=== PATIENT | female | born 1960 | race Caucasian/White ===

== ENCOUNTER 2018-04-14 08:47 | Day surgery (SDC) | payer OTHER ==
[2018-04-10 14:24] LABS: Absolute Lymphocytes (CBC) 2.3 K/uL (0.7-4.9); Absolute Monocytes 0.6 K/uL (0.1-1.3); Absolute Neutrophil 3.8 K/uL (1.8-8.0); Basophils % 0.7 % (0-1.3); Eosinophils % 2.3 % (0-4.4); Hematocrit 40.1 % (36.0-45.0); Lymphocytes % 33.4 % (15.3-44.8); MCH 30.6 pg (27.0-35.0); MCV 89.9 fL (80-100); MPV 8.7 fL (7.6-11.3); Monocytes % 8.8 % (3.3-12.3); RBC Red Blood Cell Count 4.46 M/uL (3.86-4.86)
[2018-04-10 14:33] LABS: Potassium 4.6 mmol/L (3.5-5.1)
--- NOTE | 2018-04-10 14:45 | RAD REPORT ---
EXAM DESCRIPTION: RAD - Chest Pa And Lat (2 Views) - 04/10/2018 2:17 pm CLINICAL HISTORY: Preop chest, right breast infection pending surgical debridement and biopsy COMPARISON: May 2013 TECHNIQUE: PA and lateral views of the chest were obtained. FINDINGS: The lungs are normal volume. No peripheral mass, consolidation or failure finding. Lung ma rkings are similar to the comparison. Heart size is normal and central vasculature is within normal limits. No pleural effusion or pneumothorax seen. No acute bony finding noted. No aortic abnormal ity. IMPRESSION: No acute cardiopulmonary process. No significant change from 2012.
--- NOTE | 2018-04-11 05:12 | EKG ---
Test Date: 2018-04-10 Test Time: 13:31:28 Software Project Lead: LINDA MEASUREMENT RESULTS: Intervals: Rate: 65 FL: 160 QRSD: 98 QT: 396 QTc: 411 [place]: P: 40 FL: 160 QRS: -29 T: 28 INTERPRETIVE STATEMENTS: Normal sinus rhythm Normal ECG No previous ECG available for comparison Electronically Signed On 04-11-18 05:11:19 CDT by Braeden Case
[~2018-04-14 08:47] MED LIST: CEFAZOLIN/SWI 1gm 1 GM/10 ML SYR IVP SCH
--- OUTSIDE RECORDS SUMMARY | 2018-04-14 08:50 | XMS REPORT | Continuity of Care Document ---
:1960 Author Organization Interface Problems Problem Status Onset Classification Date Comments Source Date Reported R92.8 - OTH ABN Active [facility] AND INCONCLUSIVE [address] [place] FINDI Medications Medication Details Route Status Patient Ordering Order Source Instructions Provider Date Allergies, Adverse Reactions, Alerts Substance Category Reaction Severity Reaction Status Date Comments Source type Reported Immunizations Immunization Date Given Site Status Last Updated Comments Source Results Order Results Value Reference Date Interpretation Comments Source Name Range Breast Breast 03/25 - [facility] w/wo w/ - [place] contrast contrast bilat MRI bilat MRI Read by: Maru Philip MD Dictated Date/time: 03/28/18 13:01 BREAST MRI OF BOTH BREASTS : 03/25/2018 Electronically Signed by: Maru Philip MD 03/28/18 13:01 FINAL REPORT CLINICAL: /N64.52 Nipple Discharge HISTORY: 58 yo high risk female referred by Dr. Garrett for MRI evaluation of RIGHT nipple discharge which began 01/19/2018. Patient describes the nipple discharge as whitish-yellow from multiple ducts and sometimes spontaneous and sometimes nonspontaneous. She also reports a similar discharge from the LEFT nipple but from only two ducts and less frequent and less voluminous. The RIGHT discharge teste d Guaiac positive at time of MRI. Nipple piercings removed in 2013. Family history of breast cancer: Mother at 37 and at 39, (m) GGM, (m) GA, (p) GM, and (p) GA. No prior breast surgeries or biopsies. Patient reports history of aortic aneurysm without intervention. Previous uterine ablation. COMPARISON: Bilateral mammogram, 03/12/2018, [facility]. TECHNIQUE: High resolution 1.6 mm eTHRIVE-linear T1 axial acquistions were obtained of both breasts using a Van 3.0 Jackie MRI with dedicated Ingenia breast coil preceding and following the adminstr ation of 14 cc of Multihance contrast. Axial STIR sequence along with T1 axial (non fat saturated) and post sagittal T1 images through each breast were aquired. Multiplanar reconstructions (MPR), color mapping, time intensity curves, computer generated subtraction with motion correction, and 3D MIP (maximum intensity projection) were performed on physicians review station with [employer]. PRE GADOLINIUM CONTRAST INJECTION TESTING: The patient's creatinine and GFR were assessed withthe I-STAT DEVICE. Creatinine measured 0.7 mg/dl and GFR 96. The patient's values fall within norm al limits for age and weight. These values are considered within tolerance level and safe for injection. MRI FINDINGS: RIGHT BREAST FINDINGS: There is an approximately 0.7 rim-enhancing lesion within the base of the nipple. It is low signal on T1 FSE and increased on T2 most compatible with an abscess. There is irregu lar ductal enhancement extending posteriorly from the central aspect of the nipple lesion/abscess measuring approximately 3.0 cm in greatest AP dimension. This is best seen on the delayed post sagittal image #74. Elsewhere in the right breast, there are no additional abnormal areas of enhancement that would be suspicious for malignancy.The visualized lymph nodes appear architecturally preserved. The chest wall s tructures appear normal. No internal mammary adenopathy. LEFT BREAST FINDINGS: I do not identify any definite evidence of spiculated or linear beaded enhancement to suggest malignancy. The nipple- areolar complex appears to be unremarkable. The visualized lym ph nodes appear architecturally preserved. The chest wall structures appear normal. No internal mammary adenopathy. NOTE: There is a known (per patient) ascending aortic aneurysm measuring approximately 4.5 cm in caliber by this study. IMPRESSION: PROBABLY BENIGN 1. 0.7 CM RIM-ENHANCING LESION WITHIN THE BASE OF THE RIGHT NIPPLE ASSOCIATED WITH IRREGULAR DUCTAL ENHANCEMENT DESCRIBED ABOVE. THE MRI FINDINGS COMBINED WITH THE CLINICAL FINDINGS AND HISTORY ARE MOST COMPATIBLE WITH AN ABSCESS COMMUNICATING WITH ANTERIOR DUCTAL NETWORK. HOWEVER, DUCTAL ENHANCEMENT DUE TO NEOPLASM CANNOT ABSOLUTELY BE EXCLUDED AT THIS TIME. 2. THERE IS NO DEFINITE MRI EVIDENCE OF MALIGNANCY INVOLVING THE RIGHT BREAST. 3. NO SUSPICIOUS ADENOPATHY. 4. KNOWN ASCENDING AORTIC ANEURYSM (NO INTERVENTION PER PATIENT). RECOMMENDATION: 1. CONTINUED SURGICAL MANAGEMENT PER DR. GARRETT. 2. ALSO, RECOMMEND A FOLLOW-UP CONTRAST ENHANCED BREAST MRI IN 3-6 MONTHS AFTER SURGICAL MANAGEMENT IS COMPLETED TO ASSESS RESOLUTION OF THE DUCTAL ENHANCEMENT (ESPCIALLY IN LIEU OF HER FAMILY HISTORY OF BREAST CANCER). This exam was interpreted at [id number] for [facility]. Maru Philip M.D. sg/:03/28/2018 13:01:56 Director Business Integration(s): Khadra Kimbrough [facility] letter sent: BI-RADS 3 MRI BI-RADS: 3 Probably benign Vital Signs Vital Sign Value Date Comments Source Encounters Location Location Encounter Encounter Reason Attending ADM DC Status Source Details Type Number For Provider Date Date Visit Procedures Procedure Code Date Perfomer Comments Source
[2018-04-14] MEDS ORDERED: Ringers Lactate 1,000 ML IV ONE (10:01)
[2018-04-14] MEDS ORDERED: CEFAZOLIN/SWI 1gm 1 GM/10 ML SYR ONE (10:01)
[2018-04-14] MEDS ORDERED: LIDOCAINE 2% MPF 5 ML VIAL ONE (10:15)
[2018-04-14] MEDS ORDERED: PROPOFOL 200 MG/20 ML VIAL IV ONE (10:15)
[2018-04-14] MEDS ORDERED: MIDAZOLAM HCL 2 MG/2 ML INJ ONE (10:15)
[2018-04-14] MEDS ORDERED: FENTANYL CITR 100 MCG/2 ML ONE (10:16)
--- NOTE | 2018-04-14 11:28 | P.BOP ---
Preoperative diagnosis: right breast retroareolar mass with bloody nipple discharge Postoperative diagnosis: same Primary procedure: Right breast lumpectomy Coo: TOM MENDOZA Estimated blood loss: <10cc Specimen: mass Findings: mass Anesthesia: General Complications: None Transferred to: Recovery Room Condition: Good
[2018-04-14] MEDS ORDERED: CODEINE 30MG/APAP 300MG TAB ONE (12:19)
[2018-04-14 13:19] VITALS: BP 106/72; TEMP 97.2; O2SAT 97
--- NOTE | 2018-04-14 22:28 | OP ---
Date of Procedure: 04/14/2018 Surgeon: Lalito Nicolas MD Staff Internist Office Based Only: KATALINA Chamberlain. Diagnosis: Right breast mass with bloody nipple discharge. Postop Diagnosis: Right breast mass with bloody nipple discharge. Procedure: Right breast lumpectomy. Estimated Blood Loss: Less than 10 cc. Specimen: Mass. Anesthesia: General plus local. Indications: This is a case of a 58-year-old patient, with a bloody nipple discharge to have had a d uctogram recently, was found to have a mass on the breast tissue just behind the nipple. An area of a duct with the nipple was identified previously. The patient understand the benefits, alternatives, and risks of excision, which include, not limited to infection, bleeding, damage to adjacent structur es, anesthesia complications, recurrence, [place], and even . She also understands this may not reli fuad any symptoms. She might need more than one surgical intervention. She understood. Signed the c onsent. Description Of Procedure: The patient was brought to the operating room, placed in supine position. Anesthesia was achieved without complication. Right breast was prepped and draped in usual sterile fashion. A time-out was called. An incision was made in the periareolar region. Incision was lexi ed down to breast tissue. We proceeded to do a debridement and removal of the mass just behind the n ipple, we also included the duct of the nipple associated with the mass. We went back about 3 cm from the nipple itself to get some scar tissue present in that region, with some duct present back there too. The nipple was inspected. Once again, the duct, the nipple was also removed with the breast ti ssue, some extra nipple margins were sent. No other mass was palpated. The area was irrigated. The area behind the areolar, nipple was completely excised all the way down to 3 cm. The area was irriga sudha. Hemostasis obtained. The area was closed with a subcuticular closure with a Steri-Strip on top . The patient tolerated the procedure well. The patient was sent to recovery in stable condition. Diagnosis: Right breast mass with bloody nipple discharge. Procedure: Right breast lumpectomy Disposition: Home. Activity: As tolerated. No heavy lifting. Followup: Follow up in my office in 1 week. Call for appointment [phone]. Keep area dry until nex t office visit. Keep the dressings intact. Medications: Include Bactrim DS p.o. b.i.d. and Tylenol No. 3, q.4 hours p.r.n. pain. KAILA/HAFSA Voice ID: [id number] Report ID: [id number]
== END 2018-04-14 12:30 | disposition home or self-care (01) ==
LOC: OR 08:47
PROVIDERS: ATTEND Surgery
PROC: 0HBT0ZZ Excision of Right Breast, Open Approach (ICD-10-PCS; principal; 2018-04-14 11:45)
DX: N63.0 Unspecified lump in unspecified breast (principal); I10 Essential (primary) hypertension; Z91.040 Latex allergy status; Z82.49 Family history of ischemic heart disease and other diseases of the circulatory system; Z80.3 Family history of malignant neoplasm of breast; Z80.8 Family history of malignant neoplasm of other organs or systems
CPT/HCPCS: 36415; 71046; 80048; 85025; 88305; 88307; 93005; J0690; J2250; J3010

== ENCOUNTER 2020-10-22 10:26 | Emergency (ER) | payer OTHER ==
--- OUTSIDE RECORDS SUMMARY | 2020-10-22 10:30 | XMS REPORT | Continuity of Care Document ---
:1960 Author Organization [facility] Information [place] Care Team Providers Name Role Phone [facility] [employer] Unavailable Un available Problems Problem Status Onset Classification Date Comments Sourc e Date Reported R92.8 - OTH ABN Active [facility] AND INCONCLUSIVE 8 Her [facility]pta FINDI Medications No Data Provided for This Section Allergies, Adverse Reactions, Alerts No Known Medication Allergies Immunizations No Data Provided for This Section Results No Data Provided for This Section Pathology Reports No Data Provided for This Section Diagnostic Reports Report Value Date Source Breast w/wo contrast 01/13/2019 [facility] bilat MRI BREAST MRI OF BOTH BREASTS : 01/13/2019 CLINICAL: 58 yo with history of right breast surgery April 2018 (duct removal) for nipple discharge. Previous MRI 03/2018 showed an abscess communicating with anterior ductal network versus neoplasm. No malignancy was found at surgery. COMPARISON:Comparison is mad e to exam dated: 03/25/2018 breast MRI - [facility]. TECHNIQUE: Interpretation of this MRI was correlated with available mammograms. 19 cc of MultiHance contrast was injected. Axial T1, T2, sagittal T1, pre and post contrast T1, and coronal images were obtained with a dedicated breast MRI. FINDINGS: Bilateral background breast enhancement is minim al. RIGHT BREAST: There are right retroareolar postsurgical changes including nipple retraction. There is no suspicious mass or nonmass enhancement. There are no abnormalities seen in the axillary nodes region or internal mammary nodes. LEFT BREAST: There are retroareolar ducts with T1 hyperintense debris and no associated enhancement. There is no suspicious mass or nonmass enhancement. There are no abnormalities seen in the axillary nodes region or internal mammary nodes. IMPRESSION: BENIGN Right retroareolar postsurgi victor manuel changes including nipple retraction. No suspicious enhancement in either breast. RECOMMENDATION: - BILATERAL MAMMOGRAM AND ULTRASOUND IS DUE MARCH 2019. The patient was informed of the findings and rec ommendations 01/16/19 at 1 pm. This exam was interpreted at [id number] for [facility]. Carito Chan M.D. dh/:01/16/2019 13:38:31 Punch Hand(s): Fabien Stubbs [facility] [place] [facility] sent: BI-RADS 1/2 MRI BI-RADS: 2 Benign Breast w/wo contrast 03/25/2018 [facility] Juancarl[employer] cash bilat MRI BREAST MRI OF BOTH BREASTS : 03/25/2018 CLINICAL: /N64.52 Nipple Discharge HISTORY: 58 yo high risk fem norberto referred by Dr. Nicolas for MRI evaluation of RIGHT nipple discharge which began 01/19/2018. Patient describes the nipple discharge as whitish-yellow from multiple ducts and sometimes spontaneous an d sometimes nonspontaneous. She also reports a similar [...] surgeries or biopsies. Patient reports history of a ortic aneurysm without intervention. Previous uterine ablation. COMPARISON: Bilateral mammogram, 03/12/2018, [facility]. TECHNIQUE: High resolution 1 .6 mm eTHRIVE-linear T1 axial acquistions were obtained of both breasts using a Van 3.0 Jackie MRI with dedicated In[employer]ia breast coil preceding and following the adminstr ation of 14 cc of Multihance contrast. Axial STIR sequence along with T1 axial (non fat saturated) and post sagittal T1 images through each breast were aquired. Multiplanar reconstructions (MPR), color mapping, time intensity cur ves, computer generated subtraction with motion correction, and 3D MIP (maximum intensity projection) were performed on physicians review station with [employer]. PRE GADOLINIUM CONTRAST INJE CTION TESTING: The patient's creatinine and GFR were assessed withthe I-STAT DEVICE. Creatinine measured 0.7 mg/dl and GFR 96. The patient's values fall wit hin normal limits for age an d weight. These values are considered within tolerance level and safe for injection. MRI FINDINGS: RIGHT BREAST FINDINGS: The re is an approximately 0.7 rim-enhancing lesion within the base of the nipple. It is low signal on T1 FSE and increased on T2 most compatible with an abscess. There is irregu lar ductal enhancement exten ding posteriorly from the central aspect of the nipple lesion/abscess measuring approximately 3.0 cm in greatest AP dimension. This is best seen on the delayed post sagittal image #74. Elsewhere in the right breas t, there are no additional abnormal areas of enhancement that would be suspicious for malignancy.The visualized lymph nodes appear architecturally preserved. The chest wall s tructures appear normal. No internal mammary ad enopathy. LEFT BREAST FINDINGS: I do n ot identify any definite evidence of spiculated or linear beaded enhancement to suggest malignancy. The nipple-areolar complex appears to be unremarkable. The visualized lym ph nodes appear architectura lly preserved. The chest wall structures appear normal. No internal mammary adenopathy. NOTE: There is a known (per patient) ascending aortic aneurysm measuring approximately 4.5 cm in caliber by this study. IMPRESSION: PROBABLY BENIGN 1. 0.7 CM RIM-ENHANCING LESI ON WITHIN THE BASE OF THE RIGHT NIPPLE ASSOCIATED WITH IRREGULAR DUCTAL ENHANCEMENT DESCRIBED ABOVE. THE MRI FINDINGS COMBINED WITH THE CLINICAL FINDINGS AND HISTORY ARE MOST COMPATIBLE WITH AN ABSC ESS COMMUNICATING WITH ANTERIOR DUCTAL NETWORK. HOWEVER, DUCTAL ENHANCEMENT DUE TO NEOPLASM CANNOT ABSOLUTELY BE EXCLUDED AT THIS TIME. 2. THERE IS NO DEFINITE MRI EVIDENCE OF MALIGNANCY INVOLVING THE RIGHT BREAST. 3. NO SUSPICIOUS ADENOPATHY. 4. KNOWN ASCENDING AORTIC ANEURYSM (NO INTERVEN TION PER PATIENT). RECOMMENDATION: 1. CONTINUED SURGICAL MANAGEMENT PER DR. CLEMENCIA Lua 2. ALSO, RECOMMEND A FOLLOW- UP CONTRAST ENHANCED BREAST MRI IN 3-6 MONTHS AFTER SURGICAL MANAGEMENT IS COMPLETED TO ASSESS RESOLUTION OF THE DUCTAL ENHANCEMENT (ESPCIALLY IN LIEU OF HER FAMILY HISTORY OF BREAST CANCER). This exam was interpreted at [id number] for [facility]. Maru Philip M.D. sg/:03/28/2018 13:01:56 Punch Hand(s): Khadra Kimbrough [facility] letter sent: BI-RADS 3 MRI BI-RADS: 3 Probably benign Consultation Notes No Data Provided for This Section Discharge Summaries No Data Provided for This Section History and Physicals No Data Provided for This Section Vital Signs No Data Provided for This Section Encounters No Data Provided for This Section Procedures No Data Provided for This Section Assessment and Plan No Data Provided for This Section Plan of Care No Data Provided for This Section Social History No Data Provided for This Section Family History No Data Provided for This Section Advance Directives No Data Provided for This Section Functional Status No Data Provided for This Section
--- OUTSIDE RECORDS SUMMARY | 2020-10-22 10:30 | XMS REPORT | Clinical Summary ---
:1960 Author Organization [facility] Address [address] [place] [address] Care Team Providers Name Role Phone Asked, No Pcp Primary Care Provider Unavailable Allergies Active Allergy Reactions Severity Noted Date Comments Latex Rash Low 06/15/2019 Added based on information entered during case ent ry, please review and add reactions, type , and severity as needed Medications Medication Sig Dispensed Refills Start End Date Status Date azelastine azelastine 137 0 Acti ve (ASTELIN) 137 mcg mcg (0.1 %) (0.1 %) nasal spray nasal spray aerosol atorvastatin 0 Active (LIPITOR) 10 MG 9 tablet fluticasone fluticasone 0 Active propionate propionate 50 (FLONASE) 50 mcg/actuation mcg/actuation nasal nasal spray spray,suspensio n gabapentin gabapentin 300 0 Acti ve (NEURONTIN) 300 mg mg capsule capsule sertraline (ZOLOFT) 50 mg daily. 0 Active 50 MG tablet 9 temazepam Take 30 mg by 0 Active (RESTORIL) 30 mg mouth nightly capsule as needed for sleep. cyclobenzaprine Take 10 mg by 0 Active (FLEXERIL) 10 mg mouth as needed tablet for muscle spasms. vit Take by mouth 2 0 Acti ve C/E/Zn/coppr/lutein (two) times a /zeaxan day. (PRESERVISION AREDS-2 ORAL) traMADoL (ULTRAM) Take 50 mg by 0 Active 50 mg mouth every 6 tabletIndications: (six) hours as acute pain needed for moderate pain .acute pain. losartan (COZAAR) Take 1 tablet 90 tablet 1 Active 50 MG tablet (50 mg total) 0 by mouth daily. etanercept (ENBREL) Inject 50 mg 0 Active 50 mg/mL (1 mL) under the skin injection once a week. metoprolol Take 2 tablets 90 tablet 3 09/20/20 Acti ve succinate XL (50 mg total) 0 21 (TOPROL-XL) 25 mg by mouth daily. 24 hr tablet losartan (COZAAR) losartan 50 mg 0 0 Discontinued 50 MG tablet tablet 20 (Reorde r) cholecalciferol, Take 1,000 0 08/16/20 Di scontinued vitamin D3, Units by mouth 20 (Vitamin D3) 25 mcg 2 (two) times a (1,000 unit) day. capsule metoprolol Take 1 tablet 90 tablet 3 09/20/20 Disco ntinued succinate XL (25 mg total) 0 20 (TOPROL-XL) 25 mg by mouth daily. 24 hr tablet Active Problems Problem Noted Date Palpitation 08/17/2020 COVID-19 08/17/2020 Other spondylosis, cervical region 06/25/2019 Aortic dilatation 06/17/2019 Nonrheumatic aortic valve insufficiency 06/17/2019 Tobacco use 06/17/2019 Hypercholesteremia 06/17/2019 Essential hypertension 06/17/2019 Establishing care with new doctor, encounter for 06/17 Cervical radiculopathy 01/14/2018 Cervical stenosis of spinal canal 01/14/2018 Lumbar radiculopathy 01/14/2018 Chronic pain disorder 01/14/2018 Psoriatic arthritis 01/14/2018 Thoracic ascending aortic aneurysm 01/06/2017 Encounters Date Type Specialty Care Team Description 09/20/2020 Telemedicine Cardiology Ernie Palpitation; DEXTER Doan MD 08/29/2020 Travel 08/26/2020 Orders Only Cardiology Dami Palpitation (Pr imary Dx); BENNETT Laguna-Karen 08/24/2020 Hospital Encounter Procedural Al-Kusum, Aortic di latation (HCC); Cardiology Rossy Coronado, Essential hype rtension; Thoracic ascend ing aortic aneurysm (HCC); Psoriatic arthr itis (HCC); Hypercholestere xochitl 08/24/2020 Travel 08/23/2020 Travel 08/17/2020 Telemedicine Cardiology Nuno, Aortic dilatati on (HCC) (Primary Dx); Rossy Coronado, Essential hype rtension; Thoracic ascend ing aortic aneurysm (HCC); Psoriatic arthr itis (HCC); Luly leung; COVID-19 08/17/2020 Travel 07/25/2020 Refill Cardiology Dami, Med Refill Luz Elena, BENNETT 03/24/2020 Telemedicine Cardiology [facility], Aortic dilatati on (HCC) (Primary Dx); Rossy Coronado, Nonrheumatic a ortic valve insufficiency; MD Luly leung 03/23/2020 Travel 03/21/2020 Travel 10/27/2019 Hospital Encounter Radiology Jakob, Cervical radiculitis Carlee Correa MD 10/27/2019 Hospital Encounter Radiology Jakob, Lumbar ra diculopathy Carlee Correa MD 10/27/2019 Hospital Encounter Radiology Jakob, Brachial radiculitis; Carlee Lumbar radiculo mariana Correa MD after 10/22/2019 Surgical History Surgery Date Site/Laterality Comments ROTATOR CUFF REPAIR Right wrist CARPAL TUNNEL RELEASE Right TONSILLECTOMY 1991 BREAST SURGERY Right milk duct remova l april 2018 ENDOMETRIAL ABLATION 2005 DISCECTOMY, CERVICAL, WITH 06/25/2019 Spine Cervical/Anteri or Procedure: ANTERIOR FUSION, ANTERIOR APPROACH CERVIC AL DISCECTOMY AND FUSION WITH ALLO GRAFT AND AUTOGRAFT, R IGHT C4-C7; Surgeon: Carlee Robert MD; Location: [facility] OR; Service: Neurosu rgery; Laterality: Ante rior; Medical devices from this surgery are in the Implants section . FUSION, SPINE, CERVICAL, 06/29/2019 Spine Cervical/N/A Proc edure: CERVICAL POSTERIOR APPROACH SPINE C4 - C7 CORUS; Surgeon: Carlee Robert MD; Location: [facility] OR; Service: Neurosu rgery; Laterality: N/A; Medical devices from this surgery are in the Implants section . 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 Mosquera 9/11/19 Aortic valve insufficiency NON Rheumatic aortic valve insuffiency - Dr. Campos dx 2 yrs ago Anesthesia nfhap, ponv ,awaken during rotator cuff r shoulder - c ouldn't breath and coul hear- January 2014 can climb stairs weights recu mbent bile x 4-5 days a week x 1 hour , occasional pain in chest pt Dr. Pelayo aware Pain upper chest wall co mes and goes - not activity related Dr. Pelayo aware Resolve w/n 5 minutes Awareness under anesthesia rotator cuff repair 2013 PONV (postoperative nausea and vomiting) Hypertension Hypercholesteremia Coronary artery disease (CAD) excluded History of PSVT (paroxysmal new dx augus t 30, Dr Mccann aware supraventricular tachycardia) A-fib (HCC) Chest pain when resting or sitt ing may resolvew/n 5 mintues comes and goes History of EKG 06/17/19 Anxiety Panic attack jun 06, 2019 S/P epidural steroid injection 05/21/19, 05/14/19 cervical diagnostic epidural injection H/O ankylosing spondylitis and stenosis Psoriatic arthritis (HCC) Wears glasses Family History Medical History Relation Name Comments CABG/Stent Father Heart attack Father Cancer Mother bone and breast Heart attack Paternal Grandfather Heart disease Paternal Grandmother Relation Name Status Comments Father Mother Paternal Grandfather Paternal Grandmother Social History Tobacco Use Types Packs/Day Years Used Date Former Smoker Electronic Cigarettes, Cigarettes 39 Quit: 09/2018 Smokeless Tobacco: Never Used Comments: stopped 6 months ago Alcohol Use Drinks/Week oz/Week Comments Yes rare Alcohol Habits Answer Date Recorded How often do you have a drink containing alcohol? Monthly or less 06/17/2019 How many drinks containing alcohol do you have on a Not aske d typical day when you are drinking? How often do you have six or more drinks on one Not asked occasion? Sex Assigned at Date Recorded Female 06/16/2019 3:43 PM CDT Job Start Date Occupation Industry Not on file Not on file Not on file Last Filed Vital Signs Vital Sign Reading Time Taken Comments Blood Pressure 122/79 09/29/2020 10:32 AM AUTOMATIC COIN MACHINE MECHANIC Pulse 64 09/29/2020 10:32 AM AUTOMATIC COIN MACHINE MECHANIC Temperature - - Respiratory Rate - - Oxygen Saturation - - Inhaled Oxygen Concentration - - Weight 74.4 kg (164 lb) 09/29/2020 10:32 AM AUTOMATIC COIN MACHINE MECHANIC Height 165.1 cm (5' 5") 08/24/2020 9:55 AM AUTOMATIC COIN MACHINE MECHANIC Body Mass Index 27.29 08/24/2020 9:55 AM AUTOMATIC COIN MACHINE MECHANIC Plan of Treatment Health Maintenance Due Date Last Done Comments COVID-19 VACCINE (1 of 2) 1977 CERVICAL CANCER SCREENING 1982 BREAST CANCER SCREENING 2011 COLONOSCOPY SCREENING 2011 SHINGLES VACCINES (#1) 2011 INFLUENZA VACCINE 05/07/2020 06/19/2019, 07/07/2018 Implants Implanted Type Area Line Construction Engineer Device Shelf Model / Serial / Identifier Expiration Lot Date Kit Bone Graft Thread Interbody Extra-Small Titanium Infuse - [id number] Human N/A: MEDTRONIC SPINAL 07/06/2020 [id number] / Implanted: Qty: 1 on 06/25/2019 by Carlee Evans ot, MD at [facility] Tissue N/A AND BIOLOGICS / Implants [id number] Graft Bone Tissue Melinda Elite Large 10.6 - [id number] - [id number] Human N/A: MUSCULOSKELETAL 10/28/2020 [id number] / Implanted: Qty: 1 on 06/29/2019 by Carlee Evans ot, MD at [facility] Tissue N/A TRANSPLANT [id number] / Implants [employer] [place] Dbm Gel Plus,8cc - [id number] IPM N/A: NUVASIVE SPIN E 01/17/2020 [id number] / Implanted: Qty: 1 on 06/25/2019 by Carlee Evans ot, MD at [facility] IMPLANT N/A / DEVICES [id number] Modulus Cervical, [id number] 10deg - [id number] IPM N/A: NUVASIVE SPINE 09/23/2023 [id number] / Implanted: Qty: 1 on 06/25/2019 by Carlee Evans ot, MD at [facility] IMPLANT N/A / DEVICES [id number] Modulus Cervical, [id number] 10deg - [id number] IPM N/A: NUVASIVE SPINE 02/24/2024 [id number] / Implanted: Qty: 1 on 06/25/2019 by Carlee Evans ot, MD at [facility] IMPLANT N/A / DEVICES [id number] Modulus Cervical, [id number] 10deg - [id number] IPM N/A: NUVASIVE SPINE 05/06/2024 [id number] / Implanted: Qty: 1 on 06/25/2019 by Carlee Evans ot, MD at [facility] IMPLANT N/A / DEVICES [id number] Propel Dbm Gel Plus,8cc - [id number] IPM N/A: NUVASIVE SPIN E 06/25/2022 [id number] / Implanted: Qty: 1 on 06/25/2019 by Carlee Evans ot, MD at [facility] IMPLANT N/A / DEVICES NA Dtrax Bone Screw - [id number] IPM N/A: 03/25/2021 PD 32 301 / Implanted: 06/29/2019 at [facility] (Quantity not on file) IMPLANT N/A / DEVICES [id number] Dtrax Bone Screw - [id number] IPM N/A: 03/25/2021 PD 32 301 / Implanted: 06/29/2019 at [facility] (Quantity not on file) IMPLANT N/A / DEVICES [id number] Dtrax Cervical Cage B - [id number] IPM N/A: 01/14/2021 PD 31 200 / Implanted: 06/29/2019 at [facility] (Quantity not on file) IMPLANT N/A / DEVICES [id number] Dtrax Bone Screw - [id number] IPM N/A: 03/04/2021 PD 32 301 / Implanted: 06/29/2019 at [facility] (Quantity not on file) IMPLANT N/A / DEVICES [id number] Dtrax Cervical Cage B - [id number] IPM N/A: 04/15/2021 PD 31 200 / Implanted: 06/29/2019 at [facility] (Quantity not on file) IMPLANT N/A / DEVICES [id number] Dtrax Bone Screw - [id number] IPM N/A: 12/08/2020 PD 32 301 / Implanted: 06/29/2019 at [facility] (Quantity not on file) IMPLANT N/A / DEVICES [id number] Plate Spine Revltn 3lvl 58mm [place] Acp - [id number] Spinal N/A: NUVASIVE [id number] / Implanted: Qty: 1 on 06/25/2019 by Carlee Evans ot, MD at [facility] Implants N/A / Screw Spinal Fxd Slf-Tap 4x13mm [place] Revolution Acp - [id number] Spinal N/A: NUVASIVE [id number] / Implanted: Qty: 2 on 06/25/2019 by Carlee Evans ot, MD at [facility] Implants N/A / Screw Spinal Nikita Slf-Tap 4x13mm [place] Revolution Acp - [id number] Spinal N/A: NUVASIVE [id number] / Implanted: Qty: 4 on 06/25/2019 by Carlee Evans ot, MD at [facility] Implants N/A / Screw Spinal Nikita Slf-Tap 4x15mm [place] Revolution Acp - [id number] Spinal N/A: NUVASIVE [id number] / Implanted: Qty: 2 on 06/25/2019 by Carlee Evans ot, MD at [facility] Implants N/A / Procedures Procedure Name Priority Date/Time Associated Diagnosis Comme nts TROPONIN Routine 08/24/2020 1:22 Aortic dilatation Result s for this PM AUTOMATIC COIN MACHINE MECHANIC (HCC) procedure are in Essential the results hypertension section. Thoracic ascending aortic aneurysm (HCC) Psoriatic arthritis (HCC) Hypercholesteremia CBC WITH PLATELET AND Routine 08/24/2020 1:22 Aortic dilatati on Results for this DIFFERENTIAL PM AUTOMATIC COIN MACHINE MECHANIC (HCC) procedure are in Essential the results hypertension section. Thoracic ascending aortic aneurysm (HCC) Psoriatic arthritis (HCC) Hypercholesteremia HEPATIC FUNCTION Routine 08/24/2020 1:22 Aortic dilatation Re sults for this PANEL PM AUTOMATIC COIN MACHINE MECHANIC (HCC) procedure are in Essential the results hypertension section. Thoracic ascending aortic aneurysm (HCC) Psoriatic arthritis (HCC) Hypercholesteremia COMPREHENSIVE Routine 08/24/2020 1:22 Aortic dilatation Resul ts for this METABOLIC PANEL PM AUTOMATIC COIN MACHINE MECHANIC (HCC) procedure are in Essential the results hypertension section. Thoracic ascending aortic aneurysm (HCC) Psoriatic arthritis (HCC) Hypercholesteremia CARDIAC MRI RV Routine 08/24/2020 10:52 Aortic dilatation Resu lts for this DYSPLASIA EVAL W AM AUTOMATIC COIN MACHINE MECHANIC (HCC) procedure are in CONTRAST Essential the results hypertension section. Thoracic ascending aortic aneurysm (HCC) Psoriatic arthritis (HCC) Hypercholesteremia POC PANEL Routine 08/24/2020 9:17 Results for this AM AUTOMATIC COIN MACHINE MECHANIC procedure are i n the results section. ESTIMATED GFR Routine 08/24/2020 9:17 Results fo r this AM AUTOMATIC COIN MACHINE MECHANIC procedure are i n the results section. CV HOLTER MONITOR Routine 08/11/[address] CERVICAL SPINE WO Routine 10/27/2019 1:21 Cervical radicul itis Results for this CONTRAST PM AUTOMATIC COIN MACHINE MECHANIC procedure are i n the results section. CT LUMBAR SPINE WO Routine 10/27/2019 12:34 Lumbar radiculopat hy Results for this CONTRAST PM AUTOMATIC COIN MACHINE MECHANIC procedure are i n the results section. MRI CERVICAL SPINE WO Routine 10/27/2019 11:43 Brachial radiculitis Results for this CONTRAST AM AUTOMATIC COIN MACHINE MECHANIC Lumbar radiculopathy procedu re are in the results section. after 10/22/2019 Results Troponin (08/24/2020 1:22 PM AUTOMATIC COIN MACHINE MECHANIC) Troponin <0.01 < OR = 0.05 [facility] Comment: ng/mL [place] In accord with published recommendations, serial testing of troponin I at intervals of 2 to 4 hours for up to 12 to 24 hours is suggested in order to corroborate a single troponin I result. An elevated troponin alone is not sufficient to make the diagnosis of [place]. For additional information, please refer to http://education.[employer]/faq/EPR166 (This link is being provided for informational/ educational purposes only.) Specimen Blood Narrative Performed At FASTING:NO [facility] FASTING: NO Resulting Agency Comment Performing Organization Information: Site ID: [id number] Name: [facility] Address: [address] [place] [id number] Director: Walter Sneed Performing Organization Address City/State/ZIP Code Phon e Number [facility] [address] [address] CBC with platelet and differential (08/24/2020 1:22 PM AUTOMATIC COIN MACHINE MECHANIC) Pathologist Sig nature WBC 7.1 3.8 - 10.8 [facility] Thousand/uL [place] RBC 4.21 3.80 - 5.10 [facility] Million/uL [place] HGB 12.5 11.7 - 15.5 [facility] g/dL [place] HCT 38.5 35.0 - 45.0 % [facility] [place] MCV 91.4 80.0 - 100.0 fL [facility] [place] MCH 29.7 27.0 - 33.0 pg [facility] [place] MCHC 32.5 32.0 - 36.0 [facility] g/dL [place] RDW 13.5 11.0 - 15.0 % [facility] [place] Platelet count 272 140 - 400 [facility] Thousand/uL [place] MPV 10.8 7.5 - 12.5 fL [facility] [place] Neutrophils, absolute 3,820 1,500 - 7,800 [facility] cells/uL [place] Lymphocytes, absolute 2,549 850 - 3,900 [facility] cells/uL [place] Monocytes, absolute 660 200 - 950 [facility] cells/uL [place] Eosinophils, absolute 43 15 - 500 [facility] cells/uL [place] Basophils, absolute 28 0 - 200 [facility] cells/uL [place] Neutrophils 53.8 % [facility] [place] Lymphocytes 35.9 % [facility] [place] Monocytes 9.3 % [facility] [place] Eosinophils 0.6 % [facility] [place] Basophils + RC 0.4 % [facility] [place] Specimen Blood Narrative Performed At FASTING:NO [facility] FASTING: NO Resulting Agency Comment Performing Organization Information: Site ID: [id number] Name: [facility] Address: [address] [place] [phone] Director: Walter Sneed Performing Organization Address City/State/ZIP Code Phon e Number [facility] [place] [id number] Hepatic function panel (08/24/2020 1:22 PM AUTOMATIC COIN MACHINE MECHANIC) Pathologist [facility] nature Protein 6.6 6.1 - 8.1 g/dL [facility] [place] Albumin, S 4.2 3.6 - 5.1 g/dL [facility] [place] Globulin, total 2.4 1.9 - 3.7 g/dL [facility] (calc) [place] Albumin/globulin ratio 1.8 1.0 - 2.5 [facility] (calc) [place] Total bilirubin 0.6 0.2 - 1.2 mg/dL [facility] [place] Bilirubin direct 0.1 < OR = 0.2 [facility] mg/dL [place] Bilirubin, indirect 0.5 0.2 - 1.2 mg/dL [facility] (calc) [place] Alkaline phosphatase 40 37 - 153 U/L [facility] [place] AST 13 10 - 35 U/L [facility] [place] ALT 15 6 - 29 U/L [facility] [place] Specimen Blood Narrative Performed At FASTING:NO [facility] FASTING: NO Resulting Agency Comment Performing Organization Information: Site ID: [id number] Name: [facility] Address: [address] [place] [id number] Director: Walter Sneed Performing Organization Address [facility] Phon e Number [facility] [place] [address] [place] [address] Comprehensive metabolic panel (08/24/2020 1:22 PM AUTOMATIC COIN MACHINE MECHANIC) [facility] Glucose 97 65 - 139 [facility] Comment: mg/dL [place] Non-fasting reference interval BUN 18 7 - 25 mg/dL [facility] [place] Creatinine 0.73 0.50 - 1.05 [facility] Comment: mg/dL [place] For patients >49 years of age, the reference limit for Creatinine is approximately 13% higher for people identified as -Trinid[place]. EGFR Non-Afr. 90 > OR = 60 [facility] [place] mL/min/1.73m [place] 2 EGFR 104 > OR = 60 [facility] [place] mL/min/1.73m [place] 2 BUN/creatinine NOT APPLICABLE 6 - 22 [facility] ratio (calc) [place] Sodium 140 135 - 146 [facility] mmol/L [place] Potassium 4.3 3.5 - 5.3 [facility] mmol/L [place] Chloride 105 98 - 110 [facility] mmol/L [place] CO2 26 20 - 32 [facility] mmol/L [place] Calcium 9.8 8.6 - 10.4 [facility] mg/dL [place] Protein 6.6 6.1 - 8.1 [facility] g/dL [place] Albumin, S 4.2 3.6 - 5.1 [facility] g/dL [place] Globulin, total 2.4 1.9 - 3.7 [facility] g/dL (calc) [place] Albumin/globulin 1.8 1.0 - 2.5 [facility] ratio (calc) [place] Total bilirubin 0.6 0.2 - 1.2 [facility] mg/dL [place] Alkaline 40 37 - 153 U/L [facility] phosphatase [place] AST 13 10 - 35 U/L [facility] [place] ALT 15 6 - 29 U/L [facility] [place] Specimen Blood Narrative Performed At FASTING:NO [facility] FASTING: NO Resulting Agency Comment Performing Organization Information: Site ID: [id number] Name: [facility] Address: [address] [place] [phone] Director: Walter Sneed Performing Organization Address City/[facility]/ZIP Code Phon e Number [facility] [place] [address] [place] [address] Cardiac mri rv dysplasia eval w contrast (08/24/2020 10:52 AM AUTOMATIC COIN MACHINE MECHANIC) Specimen Narrative Performed At This result has an attachment that is no t available. [facility] CMR Report [id number] Name: NAVIN MOODY : [birth year] Scan Date: 2020-08-24 09:35:35 Electronically signed by Aamir Benjamin M.D. 15:41:46 VITALS HEIGHT: 65.00 in (165.10 cm) WEIGHT: 164.99 lbs (74.84 kgs) BSA: 1.82 m BP: 136 / 85 mmHg BASELINE HR: 48 BPM HEART RHYTHM: Sinus Bradycardia FINAL IMPRESSION A. NORMAL BI-VENTRICULAR SIZE AND FUNC TION. NO EVIDENCE OF MYOCARDIAL INFARCTION OR SCARRING. B. MILD MR, MILD AR C. ANEURYSMAL ASCENDING AORTA (4.5 CM), OTHERWISE NO RMAL AORTIC DIMENSIONS. SUMMARY LEFT VENTRICLE: LV wall thickness is nor mal. LV cavity size is normal. LV systolic function is normal. Quantitative LVEF 60 %. There is no LV mass/thrombus. VIABILITY: No myocardial infarction or scarring. RIGHT VENTRICLE: RV cavity size is mariam l. RV systolic function is normal. Quantitative RVEF 67 %. There is no RV mass/thrombus. LEFT ATRIUM: LA cavity size is normal. There is no LA mass/thrombus. RIGHT ATRIUM: RA is mildly enlarged. There is no RA ma ss/thrombus. PERICARDIUM: There is no pericardial effusion. PLEURAL EFFUSION: There is no pleural effusion. AORTIC VALVE: Aortic valve is trileaflet . There is no aortic stenosis. There is mild aortic regurgitation. Aortic regurgitant volume 8 ml. Aortic regurgitant fraction 1 1 %. MITRAL VALVE: Mitral valve is mildly thi ckened. There is no mitral stenosis. There is mild mitral regurgitation. Mitral regurgitant volume 14 ml. Mitral regurgitant fraction 18 %. TRICUSPID VALVE: Tricuspid valve leaflet s are normal. There is no tricuspid stenosis. There is trivial tricuspid regurgitation. PULMONIC VALVE: Pulmonic valve leaflets are normal. There is no pulmonic stenosis. There is trivial pulmonic regurgitation. AORTIC ROOT: The aortic root is mildly dilated (3.9 cm at SoV). CHEST: The main (2.5 cm) pulmonary arter y as well as the right (1.9 cm) pulmonary artery branch are normal in size. The left (2.4 cm) pulmonary artery branch is dilated in size. No evidence of central pulmonary emboli Aneurysmal ascending aorta at 4.5 cm otherwise normal aortic dimensions. VENOUS: Normal pulmonary venous return to the left atr ium OTHER FINDINGS: Small hepatic cyst CORE EXAM MEASUREMENTS -------- VOLUMETRIC ANALYSIS . . | | | LV | Reference | RV | R eference | +------+-------+------+ +------+ + | EDV | ml | 142 | (102-164) | 132 | (9 6-164) | | ESV | ml | 57 | (25-60) | 43 | ( 20-67) | | CO | L/min | 3.91 | | 4.09 | | | MASS | g | 88 | (87-142) | | | | SV | ml | 85 | (67-113) | 89 | ( 66-109) | | EF | % | 60 | (59-77) | 67 | ( 55-79) | '------+-------+------+ +------+ ' CARDIAC OUTPUT HR: 46 BPM LV DIMENSIONS WALL THICKNESS - ANTEROSEPTAL: 0.6 cm WALL THICKNESS - INFEROLATERAL: 0.8 cm LV DEN: 4.4 cm LV ESD: 3.1 cm LA DIMENSIONS (LV SYSTOLE) AREA - 2 CHAMBER: 16.0 cm LENGTH - 2 CHAMBER: 3.5 cm AREA - 4 CHAMBER: 16.1 cm LENGTH - 4 CHAMBER: 3.7 cm VOLUME: 63 ml VOLUME NORMALIZED: 34.6 ml/m RA DIMENSIONS (RV SYSTOLE) DIAMETER: 23.3 cm AREA - 4 CHAMBER: 6.1 cm AORTIC ROOT DIMENSIONS ANNULUS: 2.4 cm SINUS OF VALSALVA: 3.7 cm SINOTUBULAR JUNCTION: 3.3 cm EXTRACELLULAR VOLUME MEASUREMENT HEMATOCRIT: 40 % HEMATOCRIT DATE: 2020-08-24 00:00:00 17 SEGMENT -------- . . | Segments | Wall Motion | Hyperenhancement | Stress Perfusion | Interpretation | + + + + +----- + | Base Anterior | Normal/Hyper | None | | Normal | | Base Anteroseptal | Normal/Hyper | N one | | Normal | | Base Inferoseptal | Normal/Hyper | N one | | Normal | | Base Inferior | Normal/Hyper | None | | Normal | | Base Inferolateral | Normal/Hyper | No ne | | Normal | | Base Anterolateral | Normal/Hyper | No ne | | Normal | | Mid Anterior | Normal/Hyper | None | | Normal | | Mid Anteroseptal | Normal/Hyper | N one | | Normal | | Mid Inferoseptal | Normal/Hyper | N one | | Normal | | Mid Inferior | Normal/Hyper | None | | Normal | | Mid Inferolateral | Normal/Hyper | N one | | Normal | | Mid Anterolateral | Normal/Hyper | N one | | Normal | | Apical Anterior | Normal/Hyper | None | | Normal | | Apical Septal | Normal/Hyper | None | | Normal | | Apical Inferior | Normal/Hyper | None | | Normal | | Apical Lateral | Normal/Hyper | None | | Normal | | [place] | Normal/Hyp er | None | | Normal | + + + + +----- + | RV Segments | Wall Motion | Hyperenhancement | Stress Perfusion | Interpretation | + + + + +----- + | RV Basal Anterior | Normal/Hyper | N one | | Normal | | RV Basal Inferior | Normal/Hyper | N one | | Normal | | RV Mid | Normal/Hype r | None | | Normal | | RV Apical | Normal/Hyper | None | | Normal | ' + + + +----- ' FINDINGS SCAR SIZE: 0 % VASCULAR UPPER VASCULAR -------- EVALUATION OF THE THORACIC AORTA COMMENTS (no comments) . . | EVALUATION DETAILS (Thoracic Aorta) | | | | AORTIC ROOT | | Annulus Max Diameter A: 2.4 cm | | Sinus of Valsalva Max Diameter A: 3. 7 cm | | Sinotubular Junction Max Diameter A: 3.3 cm | + + | ASCENDING AORTA | | Dimension A: 4.5 cm | + + | ARCH OF THE AORTA | | Dimension A: 3.2 cm | + + | ISTHMUS OF THE AORTA | | Dimension A: 2.7 cm | + + | MID-DESCENDING AORTA | | Dimension A: 2.4 cm | . . SCAN INFO GENERAL -------- SCANNER PAMPHLET DISTRIBUTOR: [employer] MODEL: [employer]fit PULSE SEQUENCES: SSFP cine , 2D LGE segmented, 2D LGE single-shot, Black-blood LGE (or Nath-blood), Pre-contrast T1 mapping, Pos t-contrast T1 mapping, Phase contrast imaging, HASTE morphology, Bright-blood SSFP morphology, 3D contrast enhanced MRA CONTRAST AGENT TYPE: Dotarem LOT NUMBER: [id number] EXPIRATION DATE: 2025-01-04 00:00:00 GD CONCENTRATION: 0.5 M VOLUME ADMINISTERED: 23 ml DOSAGE: 0.15 mmol/kg SERUM CREATININE: 0.6 mg/dL GFR: 108.75 ml/min/1.73m CREATININE DATE: 2020-08-24 00:00:00 SEDATION SEDATION USED?: No SETUP SCAN TYPE: Both PATIENT TYPE: Outpatient LOCATION: [facility] INCOMPLETE SCAN: No REASON(S) FOR SCAN: ARVD (known/suspect) REFERRING PHYSICIAN: NUNO SUAREZ ATTENDING PHYSICIAN: AAMIR BENJAMIN TECHNICIANS: 1) Em [facility] BILL[facility] Patient Account [id number] CPT Codes 00653, 06331, 64202 ICD10 Codes R00.0, R00.2, I35.1, I10, I71.2 ADDITIONAL NOTES AOFF 71ml (used) LVOTFF 88ml PAFF 87ml LVSV 85ml RVSV 89ml Direct AR from AOFF 8ml AR RF 11% MR RVol (mL) = LVSV - LV Forward Flow (AOFF) =14ml MR RF (%) = RVol/(LVSV-AR) =18% Report generated by Precession, a product of [employer] Procedure Note Interface, Radiology Results In 2019 3:42 PM [facility] CMR Report Name: AMANDA MOODY : 1960 Scan Date: 2020-08-24 09:35:35 Electronically signed by Aamir Soliman 15:41:46 VITALS HEIGHT: 65.00 in (165.10 cm) WEIGHT: 164.99 lbs (74.84 kgs) BSA: 1.82 m BP: 136 / 85 mmHg BASELINE HR: 48 BPM HEART RHYTHM: Sinus Bradycardia FINAL IMPRESSION A. NORMAL BI-VENTRICULAR SIZE AND FUNCT ION. NO EVIDENCE OF MYOCARDIAL INFARCTION OR SCARRING. B. MILD MR, MILD AR C. 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 SUMMARY LEFT VENTRICLE: LV wall thickness is nor mal. LV cavity size is normal. LV systolic function is normal. Quantitative LVEF 60 %. There is no LV mass/thrombus. VIABILITY: No myocardial infarction or s carring. RIGHT VENTRICLE: RV cavity size is mariam l. RV systolic function is normal. Quantitative RVEF 67 %. There is no RV mass/thrombus. LEFT ATRIUM: LA cavity size is normal. T here is no LA mass/thrombus. RIGHT ATRIUM: RA is mildly enlarged. The re is no RA mass/thrombus. PERICARDIUM: There is no pericardial eff usion. PLEURAL EFFUSION: There is no pleural ef fusion. AORTIC VALVE: Aortic valve is trileaflet . There is no aortic stenosis. There is mild aortic regurgitation. Aortic regurgitant volume 8 ml. Aortic regurgit ant fraction 11 %. MITRAL VALVE: Mitral valve is mildly thi ckened. There is no mitral stenosis. There is mild mitral regurgitation. Mitral regurgitant volume 14 ml. Mitral regurgi tant fraction 18 %. TRICUSPID VALVE: Tricuspid valve leaflet s are normal. There is no tricuspid stenosis. There is trivial tricuspid regurgitation. PULMONIC VALVE: Pulmonic valve leaflets are normal. There is no pulmonic stenosis. There is trivial pulmonic regurgitation. AORTIC ROOT: The aortic root is mildly d ilated (3.9 cm at SoV). CHEST: The main (2.5 cm) pulmonary arter y as well as the right (1.9 cm) pulmonary artery branch are normal in size. The left (2.4 cm) pulmonary artery branch is dilated in size. No evidence of central pulmonary emboli Aneurysmal ascending aorta at 4.5 cm oth erwise normal aortic dimensions. VENOUS: Normal pulmonary venous return t o the left atrium OTHER FINDINGS: Small hepatic cyst CORE EXAM MEASUREMENTS -------- VOLUMETRIC ANALYSIS . . | | | LV | Reference | RV | Reference | +------+-------+------+ +---- --+ + | EDV | ml | 142 | (102-164) | 13 2 | (96-164) | | ESV | ml | 57 | (25-60) | 4 3 | (20-67) | | CO | L/min | 3.91 | | 4.0 9 | | | MASS | g | 88 | (87-142) | | | | SV | ml | 85 | (67-113) | 8 9 | (66-109) | | EF | % | 60 | (59-77) | 6 7 | (55-79) | '------+-------+------+ +---- --+ ' CARDIAC OUTPUT HR: 46 BPM LV DIMENSIONS WALL THICKNESS - ANTEROSEPTAL: 0.6 cm WALL THICKNESS - INFEROLATERAL: 0.8 cm LV DEN: 4.4 cm LV ESD: 3.1 cm LA DIMENSIONS (LV SYSTOLE) AREA - 2 CHAMBER: 16.0 cm LENGTH - 2 CHAMBER: 3.5 cm AREA - 4 CHAMBER: 16.1 cm LENGTH - 4 CHAMBER: 3.7 cm VOLUME: 63 ml VOLUME NORMALIZED: 34.6 ml/m RA DIMENSIONS (RV SYSTOLE) DIAMETER: 23.3 cm AREA - 4 CHAMBER: 6.1 cm AORTIC ROOT DIMENSIONS ANNULUS: 2.4 cm SINUS OF VALSALVA: 3.7 cm SINOTUBULAR JUNCTION: 3.3 cm EXTRACELLULAR VOLUME MEASUREMENT HEMATOCRIT: 40 % HEMATOCRIT DATE: 2020-08-24 00: 00:00 17 SEGMENT -------- . . | Segments | Wall Motion | Hy perenhancement | Stress Perfusion | Interpretation | + + + + +----- + | Base Anterior | Normal/Hyper | No ne | | Normal | | Base Anteroseptal | Normal/Hyper | No ne | | Normal | | Base Inferoseptal | Normal/Hyper | No ne | | Normal | | Base Inferior | Normal/Hyper | No ne | | Normal | | Base Inferolateral | Normal/Hyper | No ne | | Normal | | Base Anterolateral | Normal/Hyper | No ne | | Normal | | Mid Anterior | Normal/Hyper | No ne | | Normal | | Mid Anteroseptal | Normal/Hyper | No ne | | Normal | | Mid Inferoseptal | Normal/Hyper | No ne | | Normal | | Mid Inferior | Normal/Hyper | No ne | | Normal | | Mid Inferolateral | Normal/Hyper | No ne | | Normal | | Mid Anterolateral | Normal/Hyper | No ne | | Normal | | Apical Anterior | Normal/Hyper | No ne | | Normal | | Apical Septal | Normal/Hyper | No ne | | Normal | | Apical Inferior | Normal/Hyper | No ne | | Normal | | Apical Lateral | Normal/Hyper | No ne | | Normal | | [place] | Normal/Hyper | No ne | | Normal | + + + + +----- + | RV Segments | Wall Motion | Hy perenhancement | Stress Perfusion | Interpretation | + + + + +----- + | RV Basal Anterior | Normal/Hyper | No ne | | Normal | | RV Basal Inferior | Normal/Hyper | No ne | | Normal | | RV Mid | Normal/Hyper | No ne | | Normal | | RV Apical | Normal/Hyper | No ne | | Normal | ' + + + +----- ' FINDINGS SCAR SIZE: 0 % VASCULAR UPPER VASCULAR -------- EVALUATION OF THE THORACIC AORTA COMMENTS (no comments) . . | EVALUATION DETAILS (Thoracic Aorta) | | | | AORTIC ROOT | | Annulus Max Diameter A: 2.4 cm | | Sinus of Valsalva Max Diameter A: 3.7 cm | | Sinotubular Junction Max Diameter A: 3.3 cm | + + | ASCENDING AORTA | | Dimension A: 4.5 cm | + + | ARCH OF THE AORTA | | Dimension A: 3.2 cm | + + | ISTHMUS OF THE AORTA | | Dimension A: 2.7 cm | + + | MID-DESCENDING AORTA | | Dimension A: 2.4 cm | . . SCAN INFO GENERAL -------- SCANNER PAMPHLET DISTRIBUTOR: [employer] MODEL: [employer] PULSE SEQUENCES: SSFP cine, 2D LGE segmented, 2D LGE single-shot, Black-blood LGE (or Nath-blood), Pre-contrast T1 mapping, Post-co ntrast T1 mapping, Phase contrast imaging, HASTE morphology, Bright-blood SSFP morphology, 3D contrast enhanced MRA CONTRAST AGENT TYPE: Dotarem LOT NUMBER: [id number] EXPIRATION DATE: 2025-01-04 00: 00:00 GD CONCENTRATION: 0.5 M VOLUME ADMINISTERED: 23 ml DOSAGE: 0.15 mmol/kg SERUM CREATININE: 0.6 mg/dL GFR: 108.75 ml/min/1.73m CREATININE DATE: 2020-08-24 00: 00:00 SEDATION SEDATION USED?: No SETUP SCAN TYPE: Both PATIENT TYPE: Outpatient LOCATION: [facility] INCOMPLETE SCAN: No REASON(S) FOR SCAN: ARVD (known /suspect) REFERRING PHYSICIAN: NUNO SUAREZ ATTENDING PHYSICIAN: AAMIR BENJAMIN TECHNICIANS: 1) Em [facility] BILL[facility] Patient Account [id number] CPT Codes 44578, 61968, 33451 ICD10 Codes R00.0, R00.2, I35.1, I10, I71.2 ADDITIONAL NOTES AOFF 71ml (used) LVOTFF 88ml PAFF 87ml LVSV 85ml RVSV 89ml Direct AR from AOFF 8ml AR RF 11% MR RVol (mL) = LVSV - LV Forward Flow (A OFF) =14ml MR RF (%) = RVol/(LVSV-AR) =18% Report generated by Precession, a produc t of [employer] Performing Organization Address [facility] Phon e Number [facility] [id number] [place] [address] Estimated GFR (08/24/2020 9:17 AM AUTOMATIC COIN MACHINE MECHANIC) Estimated GFR >=90 mL/min/1.73 [facility] Comment: HOSPITAL Catergory Units Interpretation G1 >=90 Normal or high G2 60-89 Mildly decreased G3a 45-59 Mildly to moderately decreas ed G3b 30-44 Moderately to severely decre ased G4 15-29 Severely decreased G5 <15 Kidney failure The eGFR was calculated using the Chronic Kidney Disea se Epidemiology Collaboration (CKD-EPI) equation. Interpretation is based on recommendations of the National Kidney Foundation-Kidney Disease Outcomes [place] lity Initiative (NKF-KDOQI) published in 2014. Specimen Blood Performing Organization Address [facility] Phon e Number [facility] DEPARTMENT OF PATHOLOGY AND [address] [place] [address] [phone] [address] POC panel (08/24/2020 9:17 AM AUTOMATIC COIN MACHINE MECHANIC) Pathologist [facility] POC creatinine 0.6 0.5 - 0.9 [facility] Comment: mg/dl HOSPITAL Photography Editor Name: Tani Luu Device ID: [id number] POC hematocrit 40 37 - 47 % [facility] Specimen Performing Organization Address [facility] Phon e Number [facility] DEPARTMENT OF PATHOLOGY AND [address] [place] [address] [phone] [address] CV Holter monitor greater than 48 hours (08/11/2020) Narrative Performed At This result has an attachment that is no t available. CT Cervical Spine Wo Contrast (10/27/2019 1:21 PM AUTOMATIC COIN MACHINE MECHANIC) Specimen Narrative Performed At EXAMINATION: CT CERVICAL SPINE WO CONT RAST [facility] CLINICAL HISTORY: M54.12 Radiculopathy cervical re gion, M54.12 M54.16 COMPARISON: None. TECHNIQUE: Axial helical CT images throughout the CERVICAL spin e were performed without contrast. Sagittal and coronal reformatted i mages were generated. CT scans are performed using radiation dose reduction techniques. Technical factors are evaluated and adjusted to ensure appropriate moderation of exposure. Automated dose data management consultant nology is applied to adjust radiation exposure while achie ving a highly diagnostic quality image. FINDINGS: Sagittal image reconstructions demonstrate post ACDF c hanges extending from C4 to C7. Fusion hardware is in goo d position and appears intact. Axial images demonstrate the following: C1-2: No evidence of spinal stenosis. C2-3: There is a subtle anterior degenerative subluxat ion with minimal annular bulge and minimal spondylotic changes. There i s no significant stenosis. C3-4: There are bilateral mild facet joint degenerativ e changes. There is no significant stenosis. C4-C7: There are satisfactory post ACDF changes. There is mild residual dorsal spondylosis on the right at C6-C7 without signi ficant central canal stenosis. C7-T1: There are mild facet joint degene rative changes without stenosis. T1-T2: There are no significant spinal a bnormalities. There are degenerative changes of the co stovertebral articulation at T2. IMPRESSION: Satisfactory post ACDF changes at C4-C7 with very mild dorsal residual spondylosis on the right at C6-7. Minimal spondylotic changes as discussed above without spinal canal or foraminal stenosis. [facility]-[id number] Procedure Note [facility], Radiology Results Incoming - 10/27/2019 1:32 PM AUTOMATIC COIN MACHINE MECHANIC EXAMINATION: CT CERVICAL SPINE WO CONTRAST CLINICAL HISTORY: M54.12 Radiculopathy cervical region, M54.12 M54.16 COMPARISON: None. TECHNIQUE: Axial helical CT images throughout the CERVICAL spine were performed without contrast. Sagittal and coronal reformatted images were generated. CT scans are performed using radiation dose reduction techniques. Technical factors are evaluated and adjusted to ensure appropriate moderation of exposure. Automated dose management technology is applied to adjust radiation exposure while achievin g a highly diagnostic quality image. FINDINGS: Sagittal image reconstructions demonstra te post ACDF changes extending from C4 to C7. Fusion hardware is in good position and appears intact. Axial images demonstrate the following: C1-2: No evidence of spinal stenosis. C2-3: There is a subtle anterior degener ative subluxation with minimal annular bulge and minimal spondylotic changes. There is no significant stenosis. C3-4: There are bilateral mild facet tk nt degenerative changes. There is no significant stenosis. C4-C7: There are satisfactory post ACDF changes. There is mild residual dorsal spondylosis on the right at C6-C7 without significant central canal stenosis. C7-T1: There are mild facet joint degene rative changes without stenosis. T1-T2: There are no significant spinal a bnormalities. There are degenerative changes of the co stovertebral articulation at T2. IMPRESSION: Satisfactory post ACDF changes at C4-C7 with very mild dorsal residual spondylosis on the right at C6-7. Minimal spondylotic changes as discussed above without spinal canal or foraminal stenosis. [facility]-[id number] Performing Organization Address City/State/ZIP Code Phon e Number [facility] [id number] [facility] [place] [address] CT Lumbar Spine Wo Contrast (10/27/2019 12:34 PM AUTOMATIC COIN MACHINE MECHANIC) Specimen Narrative Performed At EXAMINATION: CT LUMBAR SPINE WO CONTRA ST [facility] CLINICAL HISTORY: M54.16 Radiculopathy lumbar ralph on, M54.12 M54.16 COMPARISON: None. TECHNIQUE: Axial helical CT images throughout the lumbar spine we re performed without IV contrast. Sagittal and coronal reformatted images were generated. All CT images were acquired using low-dose technique w ith automated exposure control. FINDINGS: There is a grade 2 anterior listhesis of L4 on L5 leve l measuring 1 cm. Advanced facet hypertrophic spondylotic changes are se en at L4-L5 level with no evidence of spondylolysis. There is severe asa ateral foraminal narrowing with potential compromise of the exiting bilateral L4 nerve roots. There is associa sudha moderate severe canal stenosis with severe bilateral lateral re cess narrowing at this level resulting in potential compromise of the tr aversing bilateral L5 nerve roots. There is a transitional L5 with hypoplastic disc at L5 -S1 level. There is no canal stenosis or foraminal narrow ing at this level. Spondylotic disc space narrowing with endplate scleros is seen at T11-T12 level with minimal canal stenosis. There is diffuse disc bulge with bilateral advanced fa cet arthropathy and ligamentous thickening at L3-L4 level with mild ca nal stenosis and moderate to severe bilateral lateral recess narrowing worst on the right side. There is spondylotic moderate to severe left foraminal narrowing with potential comprom ise of the exiting left L3 nerve root. 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 The vertebral body heights at all levels are preserved with no compression fracture. The bone density is unremarkable with no focal lytic or blastic lesion. Visualized paraspinal soft tissues are u nremarkable. 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 Multifactorial severe spondylotic changes at L4-L5 lev el with grade 2 anterior listhesis of L4 on L5 level and associated mo derate to severe canal stenosis with severe bilateral foraminal narrowi ng and bilateral lateral recess narrowing with potential compromise of the exiting bilateral L4 nerve root and traversing bilateral L5 nerve roots. Clinical corre lation is recommended. Spondylotic changes at L3-L4 level with the mild canal stenosis and a moderate to severe right and moderate left lateral rec ess narrowing as well as moderate to severe to severe lef t foraminal narrowing. [id number] Procedure Note Hm Interface, Radiology Results Incoming - 10/27/2019 1:25 PM AUTOMATIC COIN MACHINE MECHANIC EXAMINATION: CT LUMBAR SPINE WO CONTRAST CLINICAL HISTORY: M54.16 Radiculopathy lumbar region, M54.12 M54.16 COMPARISON: None. TECHNIQUE: Axial helical CT images throughout the l umbar spine were performed without IV contrast. Sagittal and coronal reformatted images were generated. All CT images were acquired using low-do se technique with automated exposure control. FINDINGS: There is a grade 2 anterior listhesis of L4 on L5 level measuring 1 cm. Advanced facet hypertrophic spondylotic changes are seen at L4-L5 level with no evidence of spondylolysis. There is severe bilateral foraminal narrowing with potential compromise of the exiting bilateral L4 nerve roots. Th ere is associated moderate severe canal stenosis with severe bilateral lateral recess narrowing at this level resulting in potential compromise of the traversing bilateral L5 nerve roots. There is a transitional L5 with hypoplas tic disc at L5-S1 level. There is no canal stenosis or foraminal narrowing at this level. Spondylotic disc space narrowing with en dplate sclerosis seen at T11-T12 level with minimal canal stenosis. There is diffuse disc bulge with bilater al advanced facet arthropathy and ligamentous thickening at L3-L4 level with mild canal stenosis and moderate to severe bilateral lateral recess narrowing worst on the right side. There is spondylotic moderate to severe left foraminal narrowing with pot ential compromise of the exiting left L3 nerve root. 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 The vertebral body heights at all levels are preserved with no compression fracture. The bone density is unremarkable with no focal lytic or blastic lesion. Visualized paraspinal soft tissues are u nremarkable. 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 Multifactorial severe spondylotic change s at L4-L5 level with grade 2 anterior listhesis of L4 on L5 level and associated moderate to severe canal stenosis with severe bilateral foraminal narrowing and bilateral lateral recess narrowing with potential compromise of the exiting bilateral L4 n erve root and traversing bilateral L5 nerve roots. Clinical correlation is recommended. Spondylotic changes at L3-L4 level with the mild canal stenosis and a moderate to severe right and moderate left lateral recess narrowing as well as moderate to severe to severe left foraminal narrowing. [id number] Performing Organization Address City/State/ZIP Code Phon e Number [facility] [id number] [place] [address] MRI Cervical Spine Wo Contrast (10/27/2019 11:43 AM AUTOMATIC COIN MACHINE MECHANIC) Specimen Narrative Performed At This result has an attachment that is no t available. EXAMINATION: MRI CERVICAL SPINE WO CONTRAST [facility] CLINICAL HISTORY: M54.12 Radiculopathy cervical region, M54.16 Radiculopathy lumbar region, M54.12 COMPARISON: October 12, 2019 FINDINGS: Cervical spine alignment is within normal limits. C4-C7 anterior fusion with vertebral bod y screws, surgical plate and disc graft causes loss of signal adjacent the hardware. Facet joint spacers at C4-5, C5-6 and C6-7. No suspicious focal bone marrow lesions. Visualized spinal cord is normal in appearance. C2-3: No central canal or foraminal narrowing. C3-4: No central canal or foraminal narrowing. C4-5: Loss of signal from the hardware. No moderate or severe canal narrowing. Foramina are likely patent. C5-C6: Loss of signal from the hardware. No evidence of canal or foraminal narrowing. C6-C7: Posterior osteophyte disc complex without significant canal narrowing. Foramina are poorly evaluated due to hardware. Left foramen is clear. Facet and uncal arthrosis may cause some degree of bright foraminal narrowing. C7-T1: No central canal narrowing. Facet and uncal arthrosis causes mild left foraminal narrowing. IMPRESSION: Postoperative changes at C4-C7. No evidence of moderate or severe canal/foraminal narr owing. [id number] Procedure Note Hm Interface, Radiology Results Incoming - 10/27/2019 1:00 PM AUTOMATIC COIN MACHINE MECHANIC EXAMINATION: MRI CERVICAL SPINE WO CONTRAST CLINICAL HISTORY: M54.12 Radiculopathy cervical region, M54.16 Radiculopathy lumbar region, M54.12 COMPARISON: October 12, 2019 FINDINGS: Cervical spine alignment is within mariam l limits. C4-C7 anterior fusion with vertebral bod y screws, surgical plate and disc graft causes loss of signal adjacent the hardware. Facet joint spacers at C4-5, C5-6 and C6 -7. No suspicious focal bone marrow lesions. Visualized spinal cord is normal in appe arance. C2-3: No central canal or foraminal narr owing. C3-4: No central canal or foraminal narr owing. C4-5: Loss of signal from the hardware. No moderate or severe canal narrowing. Foramina are likely patent. C5-C6: Loss of signal from the hardware. No evidence of canal or foraminal narrowing. C6-C7: Posterior osteophyte disc complex without significant canal narrowing. Foramina are poorly evaluated due to hardware. Left foramen is clear. Facet and uncal arthrosis may cause some degree of bright foraminal narrowing. C7-T1: No central canal narrowing. Facet and uncal arthrosis causes mild left foraminal narrowing. IMPRESSION: Postoperative changes at C4-C7. No evidence of moderate or severe canal/ foraminal narrowing. [id number] Performing Organization Address City/State/ZIP Code Phon e Number [facility] [address] [place] [address] after 10/22/2019 Advance Directives For more information, please contact: [phone] Type Date Recorded Patient Emergency Medical Tech Explanati on Advance Directives, Living Will and Medical Power of Animal Science Instructor Advance Directives, Living Will 07/02/2019 7:56 AM AD 06/25/18 and Medical Power of Animal Science Instructor
--- OUTSIDE RECORDS SUMMARY | 2020-10-22 10:31 | XMS REPORT | Continuity of Care Document ---
:1960 Author Organization [facility] t Address [address] [place] [address] Care Team Providers Name Role Phone Asked, Pcp Primary Care Physician Unavailable Ernie LEDBETTER, Roby Attending Clinician Dami GUAJARDO Attending Clinician Unavailable Nuno LEDBETTER, Ivonne Attending Clinician Madeline Robert MD Attending Clinician Payers Payer Name Policy Type Policy Effective Date Expiration Date Sour ce Number CIGNACIGNA OPEN [id number] 2014 [place] ACCESS/NETWORKxx 00:00:00 Methodis t [id number] 5-PresentHMO Problems Condition Condition Condition Status Onset Resolution Last Treating Co mments Source Name Details Category Date Date Treatment Clinician Date Palpitatio Palpitatio Disease Active 2019-10 [place] n 10-17 Methodi 00:00: st 00 COVID-19 COVID-19 Disease Active 2019-10 [place] 10-17 Methodi 00:00: st 00 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 06-25 Me thodi s, s, 00:00: st cervical cervical 00 region region Aortic Aortic Disease Active [place] dilatation dilatation 06-17 Me thodi 00:00: st 00 Nonrheumat Nonrheumat Disease Active H andrew ic aortic ic aortic 06-17 Meth angel valve valve 00:00: st insufficie insufficie 00 ncy ncy Tobacco Tobacco Disease Active [place] use use 06-17 Methodi 00:00: st 00 Hyperchole Hyperchole Disease Active H and[place] steremia steremia 06-17 Method i 00:00: st 00 Essential Essential Disease Active Evangelista rydershannon hypertensi hypertensi 11 Me thodi on on 00:00: st 00 Establishi Establishi Disease Active [facility] [place] ng care ng care 06-17 Methodi with new with new 00:00: st doctor, doctor, 00 encounter encounter for for R92.8 - Diagnosis Active 2018-03-25 Me moria OTH ABN 6-14 13:34:00 l AND R92.8 - 00:01: Michael INCONCLUSI OTH ABN 00 VE FINDI AND INCONCLUSI VE FINDI Active 03/20/[address] [facility] Cervical Cervical Disease Active [place] radiculopa radiculopa 4-10 Me thodi thy thy 00:00: st 00 Cervical Cervical Disease Active [place] stenosis stenosis 4-10 Method i of spinal of spinal 00:00: st canal canal 00 Lumbar Lumbar Disease Active [place] radiculopa radiculopa 4-10 Me thodi thy thy 00:00: st 00 Chronic Chronic Disease Active [place] pain pain 4-10 Methodi disorder disorder 00:00: st 00 Psoriatic Psoriatic Disease Active Evangelista solershannon arthritis arthritis 4-10 Meth angel 00:00: st 00 Thoracic Thoracic Disease Active [place] ascending ascending 4-02 Meth angel aortic aortic 00:00: st aneurysm aneurysm 00 Allergies, Adverse Reactions, Alerts Allergy Allergy Status Severity Reaction(s) Onset Inactive Treating Comm ents Source Name Type Date Date Clinician Latex Propensi Active Rash Added [place] ty to 06-15 based on Methodi adverse 00:00: informati st reaction 00 on s to entered drug during case entry, please review and add reactions , type, and severity as needed Family History Family Member Diagnosis Comments Start Date Stop Date Source Natural father CABG/Stent [place] Me thodist Natural father Heart attack Tarik Ryanist Natural mother Cancer [facility] thodist Paternal grandfather Heart attack Rocky Calderon Paternal grandmother Heart disease andrew Calderon Social History Social Habit Start Date Stop Date Quantity Comments Source History of tobacco Current smoker [place] Ryanist use History SDOH [place] Meth odist Alcohol Std Drinks History [facility] Meth odist Alcohol Binge Sex Assigned At F Tarik Leiva ethodist Tobacco use and 2020-09-29 2020-09-29 Never used [place]z Cali ethodist exposure 00:00:00 00:00:00 Alcohol intake 2020-09-29 2020-09-29 Current drinker [place] Yazidism 00:00:00 00:00:00 of alcohol (finding) Alcohol Comment 2019-06-18 2019-06-18 rare Tarik Leiva ethodist 00:00:00 00:00:00 History SDOH 2019-06-17 2019-06-17 2 [place] Meth odist Alcohol Frequency 00:00:00 00:00:00 Tobacco Comment 2019-06-17 2019-06-17 stopped 6 months Evangelista elizabeth Yazidism 00:00:00 00:00:00 ago Smoking Status Start Date Stop Date Source Former smoker 2020-09-29 00:00:00 2020-09-29 00:00:00 [place] [facility] Medications Ordered Filled Start Stop Current Ordering Indication Dosage Frequency Signature Comments Components Source Medication Medication Date Date Medication? Clinician (SIG) Name Name metoprolol 2019-10- Yes 50mg QD Take 2 [place] succinate 2-15 12-15 tablets Method i XL 00:00: 23:59 ([address] (TOPROL-XL) 00 :00 total) by 25 mg 24 hr mouth tablet daily. metoprolol 2019-10- No 25mg QD Take 1 [place] succinate 1-11 12-15 tablet (25 Met hodi XL 00:00: 00:00 mg total) st (TOPROL-XL) 00 :00 by mouth 25 mg 24 hr daily. tablet etanercept 2019-10 Yes 50mg Q7D Inject 50 [place] (ENBREL) 50 1-10 mg under Meth angel mg/mL (1 13:59: the skin st mL) 31 once a injection week. cholecalcif 2019-10- No 1000U Q.5D Take 1,000 [place] nick, 1-10 11-10 Units by Methodi vitamin D3, 13:57: 00:[address] (Vitamin 37 :00 (two) D3) 25 mcg times a (1,000 day. unit) capsule azelastine 2019-10 Yes azelastine [place] (ASTELIN) 1-10 137 mcg Methodi 137 mcg 13:57: (0.1 %) st (0.1 %) 36 nasal nasal spray spray aerosol fluticasone 2019-10 Yes fluticason [place] propionate 1-10 e Methodi (FLONASE) 13:57: propionate st 50 36 50 mcg/actuati mcg/actuat on nasal ion nasal spray spray,susp ension gabapentin 2019-10 Yes gabapentin H [place] (NEURONTIN) 1-10 300 mg Method i 300 mg 13:57: capsule st capsule 36 temazepam 2019-10 Yes 30mg QD Take 30 mg [place] (RESTORIL) 1-10 by mouth Metho di 30 mg 13:57: nightly as st capsule 36 needed for sleep. cyclobenzap 2019-10 Yes 10mg Take 10 mg [place] rine 1-10 by mouth Methodi (FLEXERIL) 13:57: as needed st 10 mg 36 for muscle tablet spasms. vit 2019-10 Yes Q.5D Take by Tarik C/E/Zn/jeramie 1-10 mouth 2 Metho di r/lutein/ze 13:57: (two) st axan 36 times a (PRESERVISI day. ON AREDS-2 ORAL) traMADoL 2019-10 Yes acute pain 50mg Q6H Take 50 mg [place] (ULTRAM) 50 1-10 by mouth Meth angel mg tablet 13:57: every 6 st 36 (six) hours as needed for moderate pain .acute pain. losartan 2019-10 2020- No losartan [place] (COZAAR) 50 0-19 10-19 50 mg Method i MG tablet 12:59: 00:[address] 46 :00 losartan 2019-10 Yes 50mg QD Take 1 [place] (COZAAR) 50 0-19 tablet (50 Me thodi MG tablet 00:00: mg total) st 00 by mouth daily. sertraline Yes 50mg QD 50 mg Isrraelto n (ZOLOFT) 50 8-22 daily. Method i MG tablet 00:00: st 00 atorvastati Yes Rodney n n (LIPITOR) 6-10 Methodi 10 MG 00:00: st tablet 00 Vital Signs Vital Name Observation Time Observation Value Comments Source Systolic blood 2020-09-29 10:32:00 122 mm[Hg] Rodney ortega Yazidism pressure Diastolic blood 2020-09-29 10:32:00 79 mm[Hg] [place] Yazidism pressure Heart rate 2020-09-29 10:32:00 64 /min Tarik Calderon Body weight 2020-09-29 10:32:00 74.39 kg Tarik Calderon BMI 2020-09-29 10:32:00 27.29 kg/m2 Tarik Calderon Body height 2020-08-24 09:55:00 165.1 cm Tarik Calderon Procedures Procedure Date / Time Performed Performing Clinician [facility] e COMPREHENSIVE METABOLIC 2020-08-24 13:22:00 Rossy Reina stoshannon Yazidism PANEL Husayn HEPATIC FUNCTION PANEL 2020-08-24 13:22:00 Rossy Reina Yazidism Gabrieln CBC WITH PLATELET AND 2020-08-24 13:22:00 Rossy Reina on Yazidism DIFFERENTIAL Husayn TROPONIN 2020-08-24 13:22:00 Rossy Reina Met priyanka Coronado CARDIAC MRI RV DYSPLASIA 2020-08-24 10:52:08 Rossy Reina Yazidism EVAL W CONTRAST Husayn ESTIMATED GFR 2020-08-24 09:17:00 Rossy Reina Met priyanka Coronado POC PANEL 2020-08-24 09:17:00 Rossy Reina Met priyanka Coronado CV HOLTER MONITOR GREATER 2020-08-11 00:00:00 Rossy Reina THAN [address] CERVICAL SPINE WO 2019-10-27 13:21:36 Carlee Robertist CONTRAST Madeline CT LUMBAR SPINE WO 2019-10-27 12:34:06 Carlee Robert M ethodist CONTRAST Madeline MRI CERVICAL SPINE WO 2019-10-27 11:43:00 Carlee Robert Yazidism CONTRAST Madeline Plan of Care Planned Activity Planned Date Details Comments Source Future Scheduled 2020-05-07 INFLUENZA VACCINE Rodney ortega Yazidism Test 00:00:00 [code = INFLUENZA VACCINE] Future Scheduled 2011 BREAST CANCER [facility] Me thodist Test 00:00:00 SCREENING [code = BREAST CANCER SCREENING] Future Scheduled 2011 COLONOSCOPY SCREENING [place] [facility] Test 00:00:00 [code = COLONOSCOPY SCREENING] Future Scheduled 2011 SHINGLES VACCINES [place] [facility] Test 00:00:00 (#1) [code = SHINGLES VACCINES (#1)] Future Scheduled 1982 Screening for [place] Me thodist Test 00:00:00 malignant neoplasm of cervix (procedure) [code = 264668671] Future Scheduled 1977 COVID-19 VACCINE (1 [place] [facility] Test 00:00:00 of 2) [code = COVID-19 VACCINE (1 of 2)] Encounters Start End Encounter Admission Attending Care Care Encounter Source Date/Time Date/Time Type Type Clinicians Facility Department ID 2020-09-20 2020-09-20 [facility] [id number] [place] 00:00:00 00:00:00 LEODAN 391 Method i 2020-08-24 2020-08-24 Outpatient [facility] [id number] [place] 00:00:00 00:00:00 MOUAZ 535 Method i 2020-08-17 2020-08-17 Outpatient [facility] [id number] [place] 00:00:00 00:00:00 MOUAZ 189 Method i 2020-03-24 2020-03-24 Outpatient [facility] [id number] [place] 00:00:00 00:00:00 MOUAZ 645 Method i 2019-10-27 2019-10-27 Outpatient [facility] [id number] [place] 00:00:00 00:00:00 CARLEE [address] 2019-10-27 2019-10-27 [facility] [id number] [place] 00:00:00 00:00:00 CARLEE [address] 2019-10-27 2019-10-27 [facility] [id number] [place] 00:00:00 00:00:00 CARLEE [address] 2019-10-12 2019-10-12 [facility] [id number] [place] 00:00:00 00:00:00 CARLEE [address] Results Test Description Test Time Test Comments Results Result Comments Source Comprehensive metabolic panel 2020-08-25 11:39:00 Test Item Value Reference Range Interpretation Comme nts Glucose (test code = 97 mg/dL 65-139 Non-fasting 2345-7) reference inter hiwot BUN (test code = 18 mg/dL 7-25 3094-0) Creatinine (test code 0.73 mg/dL 0.5-1.05 For pa tients >49 years of = 2160-0) age, the refere nce limitfor Creati nine is approximately 1 3% higher for peopleident ified as -Michela n. EGFR Non-Afr. 90 > OR = 60 [place] (test code = mL/min/1.73m2 2775) EGFR 104 > OR = 60 (test code = 74249-5) mL/min/1.73m2 BUN/creatinine ratio NOT APPLICABLE (calc) (test code = 3097-3) Sodium (test code = 140 mmol/L 839-286 7460-2) Potassium (test code 4.3 mmol/L 3.5-5.3 = 2823-3) Chloride (test code = 105 mmol/L 98-110 2075-0) CO2 (test code = 26 mmol/L 20-32 8-9) Calcium (test code = 9.8 mg/dL 8.6-10.4 69006-4) Protein (test code = 6.6 g/dL 6.1-8.1 2885-2) Albumin, S (test code 4.2 g/dL 3.6-5.1 = 1751-7) Globulin, total (test 2.4 1.9- 3.7 g/dL code = 15339-0) (calc) Albumin/globulin 1.8 1.0- 2.5 (calc) ratio (test code = 1759-0) Total bilirubin (test 0.6 mg/dL 0.2-1.2 code = 1974-2) Alkaline phosphatase 40 U/L 37-153 (test code = 6768-6) AST (test code = 13 U/L 10-35 1920-8) ALT (test code = 15 U/L 6-29 1742-6) RATNA (test code = RATNA) FASTING:NOFASTING: NO RAC (test code = RAC) Performing Organization Information: Site ID: RGA Name: [facility] Address: [address] [place] [id number] Director: Walter Montanez MethodistHepatic function [id number] 11:39:00 Test Item Value Reference Range Interpretation Comments Protein (test code = 6.6 g/dL 6.1-8.1 2885-2) Albumin, S (test code 4.2 g/dL 3.6-5.1 = 1751-7) Globulin, total (test 2.4 1.9- 3.7 g/dL code = 01381-5) (calc) Albumin/globulin 1.8 1.0- 2.5 (calc) ratio (test code = 1759-0) Total bilirubin (test 0.6 mg/dL 0.2-1.2 code = 1974-) Bilirubin direct 0.1 mg/dL < OR = 0.2 (test code = 1967-) Bilirubin, indirect 0.5 0.2- 1.2 mg/dL (test code = 1970-) (calc) Alkaline phosphatase 40 U/L 37-153 (test code = 6768-6) AST (test code = 13 U/L 10-35 1920-8) ALT (test code = 15 U/L 6-29 1742-6) RATNA (test code = RATNA) FASTING:NOFASTING: NO RAC (test code = RAC) Performing Organization Information: Site ID: RGA Name: [facility] Address: [address] [place] [id number] Director: Walter Montanez MethodistCBC with platelet and [id number] 11:39:00 Test Item Value Reference Range Interpretation Comments WBC (test code = 7.1 3.8- 10.8 6690-2) Thousand/uL RBC (test code = 4.21 3.80- 5.10 789-8) Million/uL HGB (test code = 12.5 g/dL 11.7-15.5 718-7) HCT (test code = 38.5 % 35-45 4544-3) MCV (test code = 91.4 fL 80-100 787-2) MCH (test code = 29.7 pg 27-33 785-6) MCHC (test code = 32.5 g/dL 32-36 786-4) RDW (test code = 13.5 % 11-15 788-0) Platelet count (test 272 140- 400 code = 777-3) Thousand/uL MPV (test code = 10.8 fL 7.5-12.5 776-5) Neutrophils, absolute 3820 1,500 - 7,800 (test code = 751-8) cells/uL Lymphocytes, absolute 2549 850- 3,900 (test code = 731-0) cells/uL Monocytes, absolute 660 200- 950 cells/uL (test code = 742-7) Eosinophils, absolute 43 15- 500 cells/uL (test code = 711-2) Basophils, absolute 28 0- 200 cells/uL (test code = 704-7) Neutrophils (test 53.8 % code = 770-8) Lymphocytes (test 35.9 % code = 736-9) Monocytes (test code 9.3 % = 5905-5) Eosinophils (test 0.6 % code = 713-8) Basophils + RC (test 0.4 % code = 706-2) RATNA (test code = RATNA) FASTING:NOFASTING: NO RAC (test code = RAC) Performing Organization Information: Site ID: NARAYAN Name: [facility] Address: [address] [place] [phone] Director: Walter Pulidon2020-11-19 11:39:00 Test Item Value Reference Range Interpretation Comments Troponin (test <0.01 < OR = 0.05 In accord wi th code = 43295-4) ng/mL published recommendations , serialtesting o f troponin I at intervals of 2 to 4 hoursfor up to 12 to 24 hours is suggested in or chris tocorroborate a single troponin I result. An elevatedtroponi n alone is not sufficient to m beulah thediagnosis of [place]. For additional information, pl ease refer to http://educatio n.lynette stdiagnostics.c om/fa q/BAP840 (This link is being provid ed for informational/e ducat ional purposes only.) RATNA (test code FASTING:NOFASTING: = RATNA) NO RAC (test code Performing = RAC) Organization Information: Site ID: RGA Name: [facility] Address: [address] [place] [address] Director: Walter Sneed [place] [facility] rv dysplasia eval w [id number] 15:41:00 Interface, Radiology Results In 08/24/2020 3:42 PM PUSHER OPERATOR [place] [facility] CMR Report Name: MAURY SANDOVAL : 1960 Scan Date: 2020-08-24 09:35:35 Electronically signed by Aamir Priest M.D. 15:41:46VITALS HEIGHT: 65.00 in (165.10 cm)WEIGHT: 164.99 lbs (74.84 kgs)BSA: 1.82 m2BP: 136 / 85 mmHgBASELINE HR: 48 BPMHEART RHYTHM: Sinus BradycardiaFINAL IMPRESSION A. NORMAL BI-VENTRICULAR SIZE AND FUNCTION. NO EVIDENCE OF MYOCARDIAL INFARCTION OR SCARRING.B. MILD MR, MILD ARC. ANEURYSMAL ASCENDING AORTA (4.5 CM), OTHERWISE NORMAL AORTIC DIMENSIONS.SUMMARY LEFT VENTRICLE: LV wall thickness is normal. LV cavity size is normal. LV systolic function is normal. Quantitative LVEF 60%. Thereis no LV mass/thrombus.VIABILITY: No myocardial infarction or scarring.RIGHT VENTRICLE: RV cavity size is normal. RV systolic function is normal. Quantitative RVEF 67 %. There is no RVmass/thrombus.LEFT ATRIUM: LA cavity size is normal. There is no LA mass/thrombus.RIGHT ATRIUM: RA is mildly enlarged.There is no RA mass/thrombus.PERICARDIUM: There is no pericardial effusion.PLEURAL EFFUSION: There is no pleural effusion.AORTIC VALVE: Aortic valve is trileaflet. There is no aortic stenosis. There ismild aortic regurgitation. Aorticregurgitant volume 8 ml. Aortic regurgitant fraction 11 %.MITRAL VALVE: Mitral valve is mildly thickened. There is no mitral stenosis. There is mild mitral regurgitation. Mitralregurgitant volume 14 ml. Mitral regurgitant fraction 18 %.TRICUSPID VALVE: Tricuspid valve leaflets are normal. There is no tricuspid stenosis. There is trivial tricuspidregurgitation.PULMONICVALVE: Pulmonic valve leaflets are normal. There is no pulmonic stenosis. There is trivial pulmonic r egurgitation.AORTIC ROOT: The aortic root is mildly dilated (3.9 cm at SoV).CHEST: The main (2.5 cm)pulmonary artery as well as the right (1.9 cm) pulmonary artery branch are normal insize. The left (2.4 cm) pulmonary artery branch is dilated in size. No evidence of central pulmonary emboliAneurysmal ascending aorta at 4.5 cm otherwise normal aortic dimensions.VENOUS: Normal pulmonary venous return to the left atriumOTHER FINDINGS: Small hepatic cystCORE EXAM MEASUREMENTS VOLUMETRIC ANALYSIS ------- . .|| | LV | Reference | RV | Reference |+------+-------+------+ +------+ +| EDV | ml | 142 | (102-164) | 132 | (96-164) || ESV | ml | 57 | (25-60) | 43 | (20- 67) || CO | L/min | 3.91 | | 4.09 | || MASS | g | 88 | (87-142)| | || SV | ml | 85 | (67-113) | 89 | (66-109) || EF | % | 60 | (59-77) | 67 | (55-79) |'------+-------+------+ +------+ ' CARDIAC OUTPUT HR: 46 BPM LV DIMENSIONS WALL THICKNESS - ANTEROSEPTAL: 0.6 cm WALL THICKNESS - INFEROLATERAL: 0.8 cm LV DEN: 4.4 cm LV ESD: 3.1 cm LA DIMENSIONS (LV SYSTOLE) AREA - 2 CHAMBER: 16.0 cm2 LENGTH - 2 CHAMBER: 3.5 cm AREA - 4 CHAMBER: 16.1 cm2 LENGTH - 4 CHAMBER: 3.7 cm VOLUME: 63 ml VOLUME NORMALIZED: 34.6 ml/m2 RA DIMENSIONS (RV SYSTOLE) DIAMETER: 23.3 cm AREA - 4 CHAMBER: 6.1 cm2 AORTIC ROOT DIMENSIONS ANNULUS: 2.4 cm SINUS OF VALSALVA: 3.7 cm SINOTUBULAR JUNCTION: 3.3 cm EXTRACELLULAR VOLUME MEASUREMENT HEMATOCRIT: 40 % HEMATOCRIT DATE: 2020-08-24 00:00:00 17 SEGMENT . .| Segments | Wall Motion | Hyperenhancement | Stress Perfusion | Interpretation |+ + + -+ + +| Base Anterior | Normal/Hyper | None | | Normal || Base Anteroseptal | Normal/Hyper | None | | Normal || Base Inferoseptal | Normal/Hyper | None | | Normal || Base Inferior | Normal/Hyper | None | | Normal || Base Inferolateral | Normal/Hyper | None | | Normal || BaseAnterolateral | Normal/Hyper | None | | Normal || Mid Anterior | Normal/Hyper | None | | Normal || Mid Anteroseptal | Normal/Hyper | None | | Normal || Mid Inferoseptal | Normal/Hyper | None | | Normal || Mid Inferior | Normal/Hyper | None | | Normal || Mid Inferolateral | Normal/Hyper | None | | Normal || Mid Anterolateral | Normal/Hyper | None | | Normal || Apical Anterior | Normal/Hyper | None | | Normal || Apical Septal | Normal/Hyper | None | | Nor mal || Apical Inferior | Normal/Hyper | None | | Normal || Apical Lateral | Normal/Hyper | None | | Normal || Odin | Normal/Hyper | None | | Normal |+ -------+ + + + +| RV Segments |Wall Motion | Hyperenhancement | Stress Perfusion | Interpretation |+ + ----+ + + +| RV Basal Anterior | Normal/Hyper | None | | Normal || RV Basal Inferior | Normal/Hyper | None | | Normal || RV Mid | Normal/Hyper | None | | Normal || RV Apical | Normal/Hyper | None | | Normal |' + + + +-- ' FINDINGS SCAR SIZE: 0 %VASCULAR UPPER VASCULAR EVALUATION OF THE THORACIC AORTA COMMENTS (no com ments). .| EVALUATION DETAILS (Thoracic Aorta) || || AORTIC ROOT || Annulus Max Diameter A: 2.4 cm || Sinus of Valsalva Max Diameter A: 3.7 cm || Sinotubular Junction Max Diameter A: 3.3 cm |+ +| ASCENDING AORTA || Dimension A: 4.5 cm |+ +| ARCH OF THE AORTA || Dimension A: 3.2 cm |+ +| ISTHMUS OF THE AORTA || Dimension A: 2.7 cm |+ +| MID-DESCENDING AORTA || Dimension A: 2.4 cm |. .SCAN INFO GENERAL SCANNER INFORMATION TECHNOLOGY AUDIT MANAGER: Sumoing MODEL: [employer] Technologiesa_fit PULSE SEQUENCES: SSFP cine, 2D LGE segmented, 2D LGE single-shot, Black-blood LGE (or Nath-blood), Pre-contrast T1 mapping, Post-contrast T1 mapping, Phase contrast imaging, HASTE morphology, Bright-blood SSFP morphology, 3D contrast enhanced MRA CONTRAST AGENT TYPE: Dotarem LOT NUMBER: [id number] EXPIRATION DATE: 2025-01-04 00:00:00 GD CONCENTR ATION: 0.5 M VOLUME ADMINISTERED: 23 ml DOSAGE: 0.15 mmol/kg SERUM CREATININE: 0.6 mg/dL GFR: 108.75 ml/min/1.73m2 CREATININE DATE: 2020-08-24 00:00:00 SEDATION SEDATION USED?: No SETUP SCAN TYPE: Both PATIENT TYPE: Outpatient [facility] INCOMPLETE SCAN: No REASON(S) FOR SCAN: ARVD (known/suspect) REFERRING PHYSICIAN: NUNO SUAREZ ATTENDING PHYSICIAN: AAMIR ACE HNICIANS: 1) Em Cook RCSBILLING Patient Account [id number] Codes [id number], [id number], [id number] Codes R00.0, R00.2, I35.1, I10, I71.2ADDITIONAL NOTES AOF F 71ml (used)LVOTFF 88mlPAFF 87mlLVSV 85mlRVSV 89mlDirect AR from AOFF 8mlAR RF 11%MR RVol (mL) = LVSV - LV Forward Flow (AOFF) =14mlMR RF (%) = RVol/(LVSV-AR) =18%Report generated by Pre[employer], a product of [employer] [place] MethodistPOC [id number] 09:19:16 Test Item Value Reference Range Interpretation Comments POC creatinine (test 0.6 mg/dl 0.5-0.9 Operato r Name: Tani code = 51881-0) [facility] [id number] POC hematocrit (test 40 % 37-47 code = 4544-3) [place] MethodistEstimated [id number] 09:19:16 Test Item Value Reference Range Interpretation Comments Estimated GFR (test >=90 mL/min/1.73 m2 Caterg ory Units code = 05426-0) Interpretati onG1 >=90 Normal or highG2 60-89 Mildly amdttjcfxT2f 45-59 Mildly to mode rately tccoxgsqdG3k 30-44 Moderately to severely decreasedG4 15-29 Severely decre asedG5 <15 Kidn ey failureThe eGFR was calculated kiran cole the Chronic Kidney Disease Epidemiology Co llaboration (CKD-EPI) equat ion. Interpretation is based on recommendations of the National Kidney Foundation-Kidn ey Disease Outcomes Qualit y Initiative (NKF-KDOQI) pub lished in 2014. Montanez MethodistCT Cervical Spine Wo [id number] 13:29:14Hm Interface, Radiology Results 10/27/2019 1:32 PM CSTEXAMINATION: CT CERVICAL SPINE WOCONTRASTCLINICAL HISTORY: M54.12 Radiculopathy cervical region, M54.12 M54.16COMPARISON: None.TECHNIQUE:Axial helical CT images throughout the CERVICAL spine were performed without contrast. Sagittal and coronal reformatted images were generated. CT scans are performed using radiation dose reduction techniques. Technical factors are evaluated and adjusted to ensure appropriate moderation of exposure. Automated dose management technology is applied to adjust radiation exposure while achieving ahighly diagnostic quality image.FINDINGS:Sagittal image reconstructions demonstrate post ACDF changes extending from C4 to C7. Fusion hardware is in good position and appears intact.Axial images demonstrate the following:C1-2: No evidence of spinal stenosis.C2-3: There is a subtle anterior degenerative subluxation with minimal annular bulge and minimal spondylotic changes. There is no significant sten osis.C3-4: There are bilateral mild facet joint degenerative changes. There is no significant stenosis.C4-C7: There are satisfactory post ACDF changes. There is mild residual dorsal spondylosis on the right at C6-C7 without significant central canal stenosis.C7-T1: There are mild facet joint degenerative changes without stenosis.T1-T2: There are no significant spinal abnormalities.There are degenerative changes of the costovertebral articulation at T2.IMPRESSION:Satisfactory post ACDF changes at C4-C7 with very mild dorsal residual spondylosis on the right at C6-7.Minimal spondylotic changes as disc ussed above without spinal canal or foraminal stenosis. [facility]-[id number] MethodistCT Lumbar Spine Wo [id number] 13:22:05Hm Interface, Radiology Results 10/27/2019 1:25 PM CSTEXAMINATION: CT LUMBAR SPINE WO CO NTRASTCLINICAL HISTORY: M54.16 Radiculopathy lumbar region, M54.12 M54.16COMPARISON: None.TECHNIQUE:Axial helical CT images throughout the lumbar spine were performed without IV contrast. Sagittal and coronal reformatted images were generated.All CT images were acquired using low-dose technique with automated exposure control.FINDINGS: There is a grade 2 anterior listhesis of L4 on L5 level measuring 1 cm. Advanced facet hypertrophic spondylotic changes are seen at L4-L5 level with no evidence of spondylolysis. There is severe bilateral foraminal narrowing with potential compromise of the exiting bilateral L4 nerve roots. There is associated moderate severe canal stenosis with severe bilateral lateral recess narrowing at this level resulting in potential compromise of the traversing bilateralL5 nerve roots.There is a transitional L5 with hypoplastic disc at L5-S1 level. There is no canal stenosis or foraminal narrowing at this level.Spondylotic disc space narrowing with endplate sclerosis seen at T11-T12 level with minimal canal stenosis.There is diffuse disc bulge with bilateral advancedfacet arthropathy and ligamentous thickening at L3-L4 level with mild canal stenosis and moderate tosevere bilateral lateral recess narrowing worst on the right side. There is spondylotic moderate to severe left foraminal narrowing with potential compromise of the exiting left L3 nerve root. 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 Clinical correlation is recommended.Spondylotic changes at L3-L4 level with the mild canal stenosis and a moderate to severe right and moderate left lateral recess narrowing as well as moderate to severe to severe left foraminal narrowing.[facility]-[id number] [facility] Cervical Spine Wo [id number] 12:57:50Hm Interface, Radiology Results 10/27/2019 1:00 PM CSTEXAMINATION: MRI CERVICAL SPINE WO CONTRASTCLINICAL HISTORY: M54.12 Radiculopathy cervical region, M54.16 Radiculopathy lumbar region, M54.12COMPARISON: October 12, 2019FINDINGS:Cervical spine alignment is within normal limits.C4-X3adiqbjpc fusion with vertebral body screws, surgical plate and disc graft causes loss of signal adjacent the hardware.Facet joint spacers at C4-5, C5-6 and C6-7.No suspicious focal bone marrow lesions.Visualized spinal cord is normal in appearance.C2-3: No central canal or foraminal narrowing.C3-4: Nocentral canal or foraminal narrowing.C4-5: Loss of signal from the hardware. No moderate or severe canal narrowing. Foramina are likely patent.C5-C6: Loss of signal from the hardware. No evidence of canal or foraminal narrowing.C6-C7: Posterior osteophyte disc complex without significant canal narrowing. Foramina are poorly evaluated due to hardware. Left foramen is clear. Facet and uncal arthrosis may cause some degree of bright foraminal narrowing.C7-T1: No central canal narrowing. Facet and uncalarthrosis causes mild left foraminal narrowing.IMPRESSION:Postoperative changes at C4-C7.No evidenceof moderate or severe canal/foraminal narrowing.[id number] Yazidism"
[2020-10-22 11:17] LABS: Urine Blood TRACE (NEG); Urine Glucose NEGATIVE (NEG); Urine Protein NEGATIVE (NEG); Urine pH 5.5 (5.0-7.0)
[2020-10-22 11:20] LABS: Absolute Lymphocytes (CBC) 1.9 K/uL (0.7-4.9); Basophils % 1.1 % (0-1.3); Hematocrit 40.8 % (36.0-45.0); Lymphocytes % 42.6 % (15.3-44.8); MPV 8.6 fL (7.6-11.3); RBC Red Blood Cell Count 4.41 M/uL (3.86-4.86)
[2020-10-22 11:31] LABS: Albumin 3.9 g/dL (3.4-5.0); Bilirubin Direct 0.3 mg/dL (0-0.2); Bilirubin Total 0.6 mg/dL (0.2-1.0); Protein, Total 7.1 g/dL (6.4-8.2)
--- NOTE | 2020-10-22 12:08 | RAD REPORT ---
EXAM DESCRIPTION: CTAbdomen Pelvis W Contrast - 10/22/2020 11:48 am CLINICAL HISTORY: Abdominal pain. ABD PAIN COMPARISON: No comparisons TECHNIQUE: Biphasic CT imaging of the abdomen and pelvis was performed with 100 ml non-ionic IV cont rast. All CT scans are performed using dose optimization technique as appropriate and may include automated exposure control or mA/KV adjustment according to patient size. FINDINGS: The lung bases are clear. The liver contains a 10 mm cyst in the medial right lobe. The spleen, pancreas, adrenal glands and ki dneys are within normal limits. No bowel obstruction, free air, free fluid or abscess. Moderate stool is present throughout the colon . The appendix is normal. No evidence of significant lymphadenopathy. Moderate lumbosacral degenerative changes. IMPRESSION: No acute intra-abdominal or pelvic finding.
--- NOTE | 2020-10-22 12:38 | EDPHYS ---
Physician Documentation [facility] Name: Amanda Moody Age: 60 yrs Sex: Female : 1960 Arrival Date: 10/22/2020 Time: 10:30 Bed 18 Private MD: ED Physician Drew Herron HPI: 10/22 14:06 This 60 yrs old Female presents to ER via Ambulatory with complaints of Side kdr Pain, Abdominal Pain. 14:06 The patient presents with abdominal pain in the left lower quadrant. Onset: The kdr symptoms/episode began/occurred suddenly, 2 day(s) ago. The symptoms do not radiate. Associated signs and symptoms: Pertinent positives: Pertinent negatives: nausea, vomiting, and diarrhea, blood in stools, diarrhea, dysuria, shortness of breath, vaginal discharge, vomiting blood. The symptoms are described as dull, intermittent, sharp. Modifying factors: The symptoms are alleviated by nothing, the symptoms are aggravated by nothing. Severity of pain: At its worst the pain was mild moderate just prior to arrival, in the emergency department the pain has improved moderately. The patient has not experienced similar symptoms in the past. The patient has not recently seen a physician. Historical: - Allergies: 10:40 Latex, Natural Rubber; ll1 - PMHx: 10:40 heart valve issues/tachycardia; High Cholesterol; Hypertension; ll1 - PSHx: 10:40 fusion 3 levels neck; Tonsillectomy; endometrial ablation; ll1 - Immunization history:: Flu vaccine is up to date. - Social history:: Smoking status: Patient denies any tobacco usage or history of. Patient/guardian denies using tobacco, the patient reports quitting approximately 2 years ago. ROS: 14:06 Constitutional: Negative for fever, chills, and weight loss, Eyes: Negative for injury, kdr pain, redness, and discharge, ENT: Negative for injury, pain, and discharge, Neck: Negative for injury, pain, and swelling, Cardiovascular: Negative for chest pain, palpitations, and edema, Respiratory: Negative for shortness of breath, cough, wheezing, and pleuritic chest pain, Back: Negative for injury and pain, : Negative for injury, bleeding, discharge, and swelling, MS/Extremity: Negative for injury and deformity, Skin: Negative for injury, rash, and discoloration, Neuro: Negative for headache, weakness, numbness, tingling, and seizure activity. Psych: Negative for depression, anxiety, suicide ideation, homicidal ideation, and hallucinations, Allergy/Immunology: Negative for hives, rash, and allergies, Endocrine: Negative for neck swelling, polydipsia, polyuria, polyphagia, and marked weight changes, Hematologic/Lymphatic: Negative for swollen nodes, abnormal bleeding, and unusual bruising. 14:06 Abdomen/GI: Positive for abdominal pain, Negative for nausea, vomiting, and diarrhea, abdominal cramps, abdominal distension, black/tarry stool, rectal pain, rectal bleeding, bowel incontinence. Exam: 14:06 Constitutional: This is a well developed, well nourished patient who is awake, alert, kdr and in no acute distress. Head/Face: Normocephalic, atraumatic. Eyes: Pupils equal round and reactive to light, extra-ocular motions intact. Lids and lashes normal. Conjunctiva and sclera are non-icteric and not injected. Cornea within normal limits. Periorbital areas with no swelling, redness, or edema. Neck: Trachea midline, no thyromegaly or masses palpated, and no cervical lymphadenopathy. Supple, full range of motion without nuchal rigidity, or vertebral point tenderness. No Meningismus. Chest/axilla: Normal chest wall appearance and motion. Nontender with no deformity. No lesions are appreciated. Cardiovascular: Regular rate and rhythm with a normal S1 and S2. No gallops, murmurs, or rubs. Normal PMI, no JVD. No pulse deficits. Respiratory: Lungs have equal breath sounds bilaterally, clear to auscultation and percussion. No rales, rhonchi or wheezes noted. No increased work of breathing, no retractions or nasal flaring. Back: No spinal tenderness. No costovertebral tenderness. Full range of motion. Skin: Warm, dry with normal turgor. Normal color with no rashes, no lesions, and no evidence of cellulitis. MS/ Extremity: Pulses equal, no cyanosis. Neurovascular intact. Full, normal range of motion. Neuro: Awake and alert, GCS 15, oriented to person, place, time, and situation. Cranial nerves II-XII grossly intact. Motor strength 5/5 in all extremities. Sensory grossly intact. Cerebellar exam normal. Normal gait. Psych: Awake, alert, with orientation to person, place and time. Behavior, mood, and affect are within normal limits. 14:06 Abdomen/GI: Inspection: abdomen appears normal, Bowel sounds: active, diminished, in all quadrants, Palpation: soft, mild abdominal tenderness, in the epigastric area and left lower quadrant, mass, is not appreciated, rebound tenderness, is not appreciated. Vital Signs: 10:40 BP 132 / 81; Pulse 63; Resp 16; Temp 98.5; Pulse Ox 98% ; Weight 74.84 kg; Height 5 ft. ll1 5 in. (165.10 cm); Pain 6/10; 12:05 BP 109 / 73; Pulse 60; Resp 16; Pulse Ox 98% on R/A; vg1 10:40 Body Mass Index 27.46 (74.84 kg, 165.10 cm) ll1 MDM: 12:38 Patient medically screened. kdr 14:06 Data reviewed: vital signs, nurses notes, lab test result(s), radiologic studies. kdr Counseling: I had a detailed discussion with the patient and/or guardian regarding: the historical points, exam findings, and any diagnostic results supporting the discharge/admit diagnosis, lab results, radiology results, the need for outpatient follow up. 10/22 11:01 Order name: Basic Metabolic Panel; Complete Time: 12:25 sv 10/22 11:01 Order name: CBC with Diff; Complete Time: 12:25 sv 10/22 11:01 Order name: Hepatic Function; Complete Time: 12:25 sv 10/22 11:01 Order name: Lipase; Complete Time: 12:25 sv 10/22 11:01 Order name: CT Abd/Pelvis - IV Contrast Only; Complete Time: 12:25 sv 10/22 11:02 Order name: Urine Dipstick--Ancillary (enter results); Complete Time: 12:25 eb 10/22 11:01 Order name: IV Saline Lock; Complete Time: 11:55 sv 10/22 11:01 Order name: Labs collected and sent; Complete Time: 11:55 sv Administered Medications: No medications were administered Disposition: 10/22/20 12:38 Discharged to Home. Impression: Abdominal and pelvic pain, Hematuria. - Condition is Stable. - Discharge Instructions: Hematuria, Adult, Abdominal Pain, Adult, [id number]. - Prescriptions for Ibuprofen 600 mg Oral Tablet - take 1 tablet by ORAL route every 6 hours As needed take with food; 30 tablet. - Medication Reconciliation Form, Thank You Letter form. - Follow up: Private Physician; When: 2 - 3 days; Reason: If symptoms return, Further diagnostic work-up, Recheck today's complaints, Continuance of care, Re-evaluation by your physician. - Problem is new. - Symptoms have improved. - Notes: Recommend follow-up urinalysis in the next week Signatures: Dispatcher [employer] EDNJ Nichole Rey, RN RN sv Drew Herron MD MD kdr Clarisse Lomax RN RN vg1 Tanya Saenz RN RN ll1 Corrections: (The following items were deleted from the chart) 13:20 12:38 10/22/2020 12:38 Discharged to Home. Impression: Abdominal and pelvic pain; vg1 Hematuria. Condition is Stable. Forms are Medication Reconciliation Form, Thank You Letter, Antibiotic Education, Prescription Opioid Use. Follow up: Private Physician; When: 2 - 3 days; Reason: If symptoms return, Further diagnostic work-up, Recheck today's complaints, Continuance of care, Re-evaluation by your physician. Problem is new. Symptoms have improved. kdr
--- NOTE | 2020-10-22 12:38 | ER ---
Nurse's Notes [facility] Name: Amanda Moody Age: 60 yrs Sex: Female : 1960 Arrival Date: 10/22/2020 Time: 10:30 Bed 18 Private MD: Diagnosis: Abdominal and pelvic pain;Hematuria Presentation: 10/22 10:40 Chief complaint: Patient states: Left mid abdominal pain for 2 days. No fever. No ll1 N/V/D. Coronavirus screen: Client denies travel out of the [place] in the last 14 days. At this time, the client does not indicate any symptoms associated with coronavirus-19. Ebola Screen: Patient denies travel to an Ebola-affected area in the 21 days before illness onset. Initial Sepsis Screen: Does the patient meet any 2 criteria? No. Patient's initial sepsis screen is negative. Does the patient have a suspected source of infection? Yes: Acute abdominal pain. Risk Assessment: Do you want to hurt yourself or someone else?. Onset of symptoms was October 21, 2020. 10:40 Method Of Arrival: Ambulatory ll1 10:40 Acuity: CHENCHO 3 ll1 Triage Assessment: 10:43 General: Appears in no apparent distress. Behavior is calm, cooperative, appropriate ll1 for age. Pain: Complains of pain in L abdomen Quality of pain is described as aching, Pain began 1 day ago. Neuro: No deficits noted. Cardiovascular: No deficits noted. Respiratory: No deficits noted. GI: Abdomen is flat, Reports lower abdominal pain, upper abdominal pain. Historical: - Allergies: 10:40 Latex, Natural Rubber; ll1 - PMHx: 10:40 heart valve issues/tachycardia; High Cholesterol; Hypertension; ll1 - PSHx: 10:40 fusion 3 levels neck; Tonsillectomy; endometrial ablation; ll1 - Immunization history:: Flu vaccine is up to date. - Social history:: Smoking status: Patient denies any tobacco usage or history of. Patient/guardian denies using tobacco, the patient reports quitting approximately 2 years ago. Screenin:11 Abuse screen: Denies threats or abuse. Nutritional screening: No deficits noted. sv Tuberculosis screening: No symptoms or risk factors identified. Fall Risk IV access (20 points). Total Haddad Fall Scale indicates No Risk (0-24 pts). Assessment: 11:01 Reassessment: Received VO from Dr Herron to input an abd workup and CT abd/pelvis with sv IV contrast. 12:05 General: Appears in no apparent distress. comfortable, Behavior is calm, cooperative. vg1 Pain: Denies pain. Neuro: Level of Consciousness is awake, alert, obeys commands, Oriented to person, place, time, situation. Cardiovascular: Patient's skin is warm and dry. Respiratory: Airway is patent Respiratory effort is even, unlabored. GI: Bowel sounds present X 4 quads. Abdomen is tender to palpation in left upper quadrant. GI: Reports States when in pain, it feels shard and tender. Patient currently denies diarrhea, nausea, vomiting. : No signs and/or symptoms were reported regarding the genitourinary system. EENT: No signs and/or symptoms were reported regarding the EENT system. Derm: Skin is intact, is healthy with good turgor. Musculoskeletal: Circulation, motion, and sensation intact. Vital Signs: 10:40 BP 132 / 81; Pulse 63; Resp 16; Temp 98.5; Pulse Ox 98% ; Weight 74.84 kg; Height 5 ft. ll1 5 in. (165.10 cm); Pain 6/10; 12:05 BP 109 / 73; Pulse 60; Resp 16; Pulse Ox 98% on R/A; vg1 10:40 Body Mass Index 27.46 (74.84 kg, 165.10 cm) ll1 ED Course: 10:30 Patient arrived in ED. ds1 10:38 Arm band placed on. ll1 10:42 Triage completed. ll1 10:49 Drew Herron MD is Attending Physician. kdr 11:05 Inserted saline lock: 22 gauge in right antecubital area, using aseptic technique. sv Blood collected. 11:10 Patient maintains SpO2 saturation greater than 95% on room air. sv 11:11 Patient has correct armband on for positive identification. Bed in low position. Call sv light in reach. Side rails up X 1. Cardiac monitoring not applicable on this patient. 11:48 CT Abd/Pelvis - IV Contrast Only In Process Unspecified. EDMS 11:58 Clarisse Lomax, RN is Primary Nurse. vg1 13:19 No provider procedures requiring assistance completed. IV discontinued, intact, vg1 bleeding controlled, No redness/swelling at site. Pressure dressing applied. Administered Medications: No medications were administered Outcome: 12:38 Discharge ordered by . kdr 13:20 Discharged to home ambulatory. vg1 13:20 Condition: stable 13:20 Discharge instructions given to patient, Instructed on discharge instructions, follow up and referral plans. medication usage, Demonstrated understanding of instructions, follow-up care, medications, Prescriptions given X 1. 13:20 Patient left the ED. vg1 Signatures: Dispatcher [employer] EDNichole Garrison RN RN sv Drew Herron MD MD kdr Sanford, Demi ds1 Clarisse Lomax RN RN vg1 Tanya Saenz RN RN ll1 Corrections: (The following items were deleted from the chart) 11:23 11:01 Reassessment: Received VO from Dr Herron to input a abd workup and CT abd/pelvis sv with IV contrast. sv
[2020-10-22 13:24] VITALS: TEMP 98.5; O2SAT 98
[2020-10-22 13:26] VITALS: BP 109/73
== END 2020-10-22 13:20 | disposition home or self-care (01) ==
LOC: ER 10:26
DX: R31.9 Hematuria, unspecified (principal); I10 Essential (primary) hypertension; Z91.040 Latex allergy status; Z91.048 Other nonmedicinal substance allergy status; Z87.891 Personal history of nicotine dependence
CPT/HCPCS: 85025; 80048; 36415; 80076; 81003; 83690; 74177; 99284; Q9967

== ENCOUNTER 2021-03-19 15:49 | Emergency (ER) | payer OTHER ==
--- NOTE | 2021-03-19 16:47 | RAD REPORT ---
EXAM DESCRIPTION: RAD - Ankle Left 3 View - 03/19/2021 4:34 pm CLINICAL HISTORY: PAIN COMPARISON: No comparisons FINDINGS: Transverse fracture involving the distal fibula is present with moderate adjacent soft tis marcello swelling. Bony fragmentation along the medial malleolus has a more chronic appearance. Small post erior and plantar calcaneal spurs. There is subtle lucency at the base of the fifth metatarsal as well which may indicate Anton fracture .
--- NOTE | 2021-03-19 17:30 | ER ---
Nurse's Notes [facility] Name: Amanda Moody Age: 61 yrs Sex: Female : 1960 Arrival Date: 03/19/2021 Time: 15:52 Bed 4 Private MD: Diagnosis: Transverse fracture of distal left fibula Presentation: 03/19 16:02 Chief complaint: Patient states: Tripped over dog 30 min [employer]. L ankle baez and swelling ll1 since. Coronavirus screen: Client denies travel out of the [place] in the last 14 days. At this time, the client does not indicate any symptoms associated with coronavirus-19. Ebola Screen: Patient denies travel to an Ebola-affected area in the 21 days before illness onset. Initial Sepsis Screen: Does the patient meet any 2 criteria? No. Patient's initial sepsis screen is negative. Does the patient have a suspected source of infection? No. Patient's initial sepsis screen is negative. Risk Assessment: Do you want to hurt yourself or someone else? Patient reports no desire to harm self or others. Onset of symptoms was March 19, 2021. 16:02 Method Of Arrival: Wheelchair ll1 16:02 Acuity: CHENCHO 4 ll1 Triage Assessment: 16:05 General: Appears in no apparent distress. uncomfortable, Behavior is cooperative, bp appropriate for age, anxious. Pain: Complains of pain in anterior aspect of left ankle. EENT: No signs and/or symptoms were reported regarding the EENT system. Neuro: No deficits noted. Cardiovascular: No deficits noted. Respiratory: No deficits noted. GI: No signs and/or symptoms were reported involving the gastrointestinal system. : No signs and/or symptoms were reported regarding the genitourinary system. Derm: No deficits noted. Musculoskeletal: Reports pain in anterior aspect of left ankle. Historical: - Allergies: 16:41 Latex, Natural Rubber; bp - Home Meds: 16:41 Unable to obtain [Active]; bp - PMHx: 16:41 heart valve issues/tachycardia; High Cholesterol; Hypertension; bp - Immunization history:: Client reports receiving the 2nd dose of the Covid vaccine, Flu vaccine is up to date. - Social history:: Smoking status: Patient denies any tobacco usage or history of. Screenin:41 Abuse screen: Denies threats or abuse. Denies injuries from another. Nutritional bp screening: No deficits noted. Tuberculosis screening: No symptoms or risk factors identified. Fall Risk None identified. Assessment: 16:05 General: SEE TRIAGE NOTE. bp 17:27 Reassessment: Patient appears in no apparent distress at this time. Patient and/or bp family updated on plan of care and expected duration. Pain level reassessed. Patient is alert, oriented x 3, equal unlabored respirations, skin warm/dry/pink. ALL CURRENT ORDERS COMPLETE, DISPO PENDING. Vital Signs: 16:02 Pulse 50; Resp 17; Temp 97.0; Pulse Ox 98% ; Weight 72.57 kg; Height 5 ft. 5 in. ll1 (165.10 cm); Pain 5/10; 16:04 BP 119 / 75; ll1 17:00 BP 121 / 69; Pulse 58; Resp 17; Temp 97.3; Pulse Ox 98% ; bp 17:58 BP 104 / 77; Pulse 78; Resp 16; Pulse Ox 100% ; bp 16:02 Body Mass Index 26.63 (72.57 kg, 165.10 cm) ll1 ED Course: 15:52 Patient arrived in ED. am2 15:57 [facility] Borg[facility]C [facility]. kb 15:57 Wiley Null MD is Attending Physician. kb 16:04 Triage completed. ll1 16:04 Arm band placed on. ll1 16:34 Ankle Left 3 View XRAY In Process Unspecified. EDMS 16:38 Yanick Gerber, RN is Primary Nurse. bp 16:41 Patient has correct armband on for positive identification. Bed in low position. Call bp light in reach. Side rails up X2. 17:00 Pulse ox on. NIBP on. mh5 17:00 Crutch training done. Orthoglass splint: Posterior short lleg splint applied on left mh5 leg. 17:24 Warm blanket given. Pillow given. mh5 17:30 Raji Vidales MD is Referral Physician. kb 18:00 No provider procedures requiring assistance completed. Patient did not have IV access bp during this emergency room visit. Administered Medications: 17:14 Drug: [place] (HYDROcodone-acetaminophen) 5 mg-325 mg 1 tabs Route: PO; rb3 18:01 Follow up: Response: Pain is decreased bp Outcome: 17:30 Discharge ordered by . timothy 18:00 Discharged to home with crutches, with family. bp 18:00 Condition: stable 18:00 Discharge instructions given to patient, family, Instructed on discharge instructions, follow up and referral plans. medication usage. 18:02 Patient left the ED. bp Signatures: Dispatcher [employer] EDUT Trinity Borges, [facility] [employer] [facility] Jo Ann Noriega 2 Yanick Gerber RN RN bp Tanya Saenz RN RN ll1 Angela Vale RN RN rb3
--- NOTE | 2021-03-19 17:31 | EDPHYS ---
Physician Documentation [facility] Name: Amanda Moody Age: 61 yrs Sex: Female : 1960 Arrival Date: 03/19/2021 Time: 15:52 Bed 4 Private MD: ED Physician Wiley Null HPI: 03/19 20:07 This 61 yrs old Female presents to ER via Wheelchair with complaints of Ankle kb Injury. 20:07 The patient presents with decreased range of motion, an injury, pain, swelling, kb tenderness. The complaints affect the left ankle. Onset: The symptoms/episode began/occurred just prior to arrival. Context: The problem was sustained at home, resulted from the patient falling, getting up from couch, The patient is unable to bear weight. The patient is not able to ambulate. Associated signs and symptoms: Pertinent positives: swelling, Pertinent negatives: calf tenderness, fever, nausea, numbness, rash, tingling, vomiting, warmth, weakness. Modifying factors: The symptoms are alleviated by nothing, the symptoms are aggravated by weight bearing, movement. Severity of symptoms: At their worst the symptoms were moderate, in the emergency department the symptoms are unchanged. The patient has not experienced similar symptoms in the past. The patient has not recently seen a physician. Historical: - Allergies: 16:41 Latex, Natural Rubber; bp - Home Meds: 16:41 Unable to obtain [Active]; bp - PMHx: 16:41 heart valve issues/tachycardia; High Cholesterol; Hypertension; bp - Immunization history:: Client reports receiving the 2nd dose of the Covid vaccine, Flu vaccine is up to date. - Social history:: Smoking status: Patient denies any tobacco usage or history of. ROS: 20:05 Constitutional: Negative for fever, chills, and weight loss. kb 20:05 MS/extremity: Positive for injury or acute deformity, decreased range of motion, pain, swelling, tenderness, of the left lateral ankle. 20:06 All other systems are negative. kb Exam: 20:06 Constitutional: This is a well developed, well nourished patient who is awake, alert, kb and in no acute distress. Head/Face: Normocephalic, atraumatic. ENT: Moist Mucous membranes Respiratory: Respirations even and unlabored. No increased work of breathing, no retractions or nasal flaring. Skin: Warm, dry with normal turgor. Normal color. Neuro: Awake and alert, GCS 15, oriented to person, place, time, and situation. Moves all extremities. Normal gait. Psych: Awake, alert, with orientation to person, place and time. Behavior, mood, and affect are within normal limits. 20:06 Musculoskeletal/extremity: Extremities: grossly normal except: noted in the left lateral ankle: decreased ROM, pain, swelling, tenderness, ROM: limited active range of motion due to pain, in the left lateral ankle, Circulation is intact in all extremities. Sensation intact. Weight bearing: is unable to bear weight. Vital Signs: 16:02 Pulse 50; Resp 17; Temp 97.0; Pulse Ox 98% ; Weight 72.57 kg; Height 5 ft. 5 in. ll1 (165.10 cm); Pain 5/10; 16:04 BP 119 / 75; ll1 17:00 BP 121 / 69; Pulse 58; Resp 17; Temp 97.3; Pulse Ox 98% ; bp 17:58 BP 104 / 77; Pulse 78; Resp 16; Pulse Ox 100% ; bp 16:02 Body Mass Index 26.63 (72.57 kg, 165.10 cm) ll1 Procedures: 20:05 Splinting: Splint applied to left leg using Orthoglass splint, applied by tech. kb Examined by me, post splint application: neurovascular intact, 2+ distal pulses palpable, brisk capillary refill noted, Patient tolerated well. MDM: 16:04 Patient medically screened. kb 20:05 Data reviewed: vital signs, nurses notes. Data interpreted: Pulse oximetry: on room air kb is 100 %. Interpretation: normal. Counseling: I had a detailed discussion with the patient and/or guardian regarding: the historical points, exam findings, and any diagnostic results supporting the discharge/admit diagnosis, radiology results, the need for outpatient follow up, a orthopedic surgeon, to return to the emergency department if symptoms worsen or persist or if there are any questions or concerns that arise at home. 03/19 16:04 Order name: Ankle Left 3 View XRAY; Complete Time: 16:56 kb 03/19 16:56 Order name: Short Leg Splint; Complete Time: 17:00 kb 03/19 16:56 Order name: Crutches; Complete Time: 16:59 kb Administered Medications: 17:14 Drug: [place] (HYDROcodone-acetaminophen) 5 mg-325 mg 1 tabs Route: PO; rb3 18:01 Follow up: Response: Pain is decreased bp Disposition: 03/19/21 17:30 Discharged to Home. Impression: Transverse fracture of distal left fibula. - Condition is Stable. - Discharge Instructions: Undisplaced Fibular Ankle Fracture Treated With Immobilization, Adult, Cast or Splint Care, [id number]. - Prescriptions for Diclofenac Sodium 75 mg Oral Tablet, Delayed Release (E.C.) - take 1 tablet by ORAL route 2 times per day As needed; 30 tablet. - Medication Reconciliation Form, Thank You Letter, Antibiotic Education, Prescription Opioid Use form. - Follow up: Emergency Department; When: As needed; Reason: Worsening of condition. Follow up: Private Physician; When: 2 - 3 days; Reason: Recheck today's complaints, Continuance of care, Re-evaluation by your physician. Follow up: Raji Vidales; When: 2 - 3 days; Reason: Recheck today's complaints. Addendum: 03/21/2021 19:26 Co-signature as Attending Physician, Wiley Null MD. r n Signatures: Dispatcher [employer] EDMS Trinity Borges, MANDREL MAKER-C MANDREL MAKER-Ckb Wiley Null MD MD rn Peltier, Brian RN Tanya Martin RN RN ll1 Angela Vale, RN RN rb3 Corrections: (The following items were deleted from the chart) 03/19 18:02 17:30 03/19/2021 17:30 Discharged to Home. Impression: Transverse fracture of distal bp left fibula. Condition is Stable. Discharge Instructions: Undisplaced Fibular Ankle Fracture Treated With Immobilization, Adult, Cast or Splint Care, [id number]. Prescriptions for Diclofenac Sodium 75 mg Oral Tablet, Delayed Release (E.C.) - take 1 tablet by ORAL route 2 times per day As needed; 30 tablet. and Forms are Medication Reconciliation Form, Thank You Letter, Antibiotic Education, Prescription Opioid Use. Follow up: Emergency Department; When: As needed; Reason: Worsening of condition. Follow up: Private Physician; When: 2 - 3 days; Reason: Recheck today's complaints, Continuance of care, Re-evaluation by your physician. Follow up: Raji Vidales; When: 2 - 3 days; Reason: Recheck today's complaints. kb
[2021-03-19] MEDS ORDERED: HYDROCODONE/APAP 5/325 MG TAB ONE (17:32)
[2021-03-19 18:10] VITALS: TEMP 97.3
[2021-03-19 18:12] VITALS: BP 104/77; O2SAT 100
== END 2021-03-19 18:02 | disposition home or self-care (01) ==
LOC: ER 15:49
PROC: 2W3RX1Z Immobilization of Left Lower Leg using Splint (ICD-10-PCS; principal; 2021-03-19)
DX: S82.422A Displaced transverse fracture of shaft of left fibula, initial encounter for closed fracture (principal); W08.XXXA Fall from other furniture, initial encounter; I10 Essential (primary) hypertension; Z91.040 Latex allergy status; Z91.048 Other nonmedicinal substance allergy status
CPT/HCPCS: 99284